=== PATIENT | female | born 2000 | race Caucasian/White ===

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

== ENCOUNTER 2021-01-16 10:49 | Emergency (ER) | payer BC, MEDICAID, OTHER, SELFPAY ==
[~2021-01-16] VITALS: Ht 154.9 cm; Wt 61.2 kg
[~2021-01-16 10:49] MED LIST changes: +ARIP10TA32 PO; -ARIP1TAB PO; -DOXY100C; +DOXY100C3; +OLAN1TAB16 PO; -OLAN5TAB PO
[2021-01-16 10:50] VITALS: BP 133/64
[2021-01-16] MEDS ORDERED: ZYPR5TAB31 PO (12:04)
== END 2021-01-16 12:15 | disposition home or self-care (01) ==
LOC: M ED 10:49
DX: Z76.0 Encounter for issue of repeat prescription (principal); Z79.899 Other long term (current) drug therapy; Z88.0 Allergy status to penicillin

== ENCOUNTER 2021-01-21 02:44 | Inpatient (IN) | payer BC, MEDICAID, OTHER, SELFPAY ==
[~2021-01-21] VITALS: Ht 154.9 cm; Wt 56.8 kg
[~2021-01-21 02:44] MED LIST changes: +ZYPR5TAB31 PO
[2021-01-21 03:14] LABS: HEMATOCRIT 42.8 % (36.0-47.0); MEAN CORPUSCULAR HEMOGLOBIN 29.5 pg (27.0-33.0); MEAN CORPUSCULAR HGB CONC 32.7 g/dl (32.0-36.5); MEAN CORPUSCULAR VOLUME 90.1 fl (80.0-96.0); PLATELET COUNT, AUTOMATED 288 10^3/uL (150-450); RED BLOOD COUNT 4.75 10^6/uL (4.00-5.40); WHITE BLOOD COUNT 6.6 10^3/uL (4.0-10.0)
[2021-01-21 04:28] LABS: HCG, SERUM QUALITATIVE NEGATIVE (NEGATIVE)
[2021-01-21 04:42] LABS: ALBUMIN 4.5 GM/DL (3.2-5.2); ALT/SGPT 75 U/L (12-78); BILIRUBIN,DIRECT 0.2 MG/DL (0.0-0.2); BILIRUBIN,TOTAL 0.6 MG/DL (0.2-1.0); BLOOD UREA NITROGEN 14 MG/DL (7-18); CALCIUM LEVEL 9.5 MG/DL (8.5-10.1); CARBON DIOXIDE LEVEL 30 MEQ/L (21-32); CHLORIDE LEVEL 106 MEQ/L (98-107); CREATININE FOR GFR 0.68 MG/DL (0.55-1.30); ETHYL ALCOHOL (ETHANOL) 0.003 % (0.000-0.010); GLUCOSE, FASTING 89 MG/DL (70-100); SALICYLATE LEVEL < 1.7 MG/DL (5.0-30.0); SODIUM LEVEL 140 MEQ/L (136-145); TOTAL PROTEIN 8.7 GM/DL (6.4-8.2)
[2021-01-21 04:43] LABS: ACETAMINOPHEN LEVEL < 2.0 UG/ML (10.0-30.0)
[2021-01-21 05:53] LABS: AMPHETAMINES LEVEL URINE POSITIVE (NEGATIVE); BARBITURATES URINE NEGATIVE (NEGATIVE); BENZODIAZEPINES URINE NEGATIVE (NEGATIVE); CANNABINOIDS URINE POSITIVE (NEGATIVE); COCAINE METABOLITE URINE NEGATIVE (NEGATIVE); METHADONE URINE NEGATIVE (NEGATIVE); OPIATES URINE NEGATIVE (NEGATIVE); PHENCYCLIDINE URINE NEGATIVE (NEGATIVE)
[2021-01-21] MEDS ORDERED: HOME MED LIST COMPLETE! XX SCH (06:25)
[2021-01-21] MEDS ORDERED: OLAN1TAB16 PO (06:25)
[2021-01-21] MEDS ORDERED: LORazepam 2 MG TAB PO STA (07:53)
[2021-01-21] MEDS ORDERED: OLANZapine ORAL DISINTEGRATING TAB 5MG PO ONE (07:55)
[2021-01-21] MEDS: OMEPRAZOLE 20 MG CAP PO SCH (09:00)
[2021-01-21] MEDS: MULTIVITAMINS/MINERALS THERAP 1 TAB PO SCH (09:00)
[2021-01-21 11:43] LABS: RSV AMPLIFICATION NEGATIVE (NEGATIVE)
--- NOTE | 2021-01-21 15:14 | MHIPNPDOC ---
[facility] Progress Note Progress Note Spoke with PFS worker Maeve Landis, states patient was brought in on the pickup order due to decompensation at [facility], was scaring other residents and threatening them stating reportedly "I will kill these motherfuckers". She also presented as being disorganized, psychotic, religiously preoccupied. Has a history of taking Zyprexa and is unclear if she is compliant. Told PSF worker patient meets admission criteria, and to admit. Vital Signs Vital Signs Date Time Temp Pulse Resp B/P (MAP) Pulse Ox O2 Delivery O2 Flow Rate FiO2 01/21/21 11:04 96.7 67 16 93/50 (64) 100 Room Air Laboratory Data 24H Labs Laboratory Tests 2 01/21/21 03:04: Nucleated Red Blood Cells % (auto) 0.0, Anion Gap 4L, Calcium Level 9.5, Total Bilirubin 0.6, Direct Bilirubin 0.2, Aspartate Amino Transf (AST/SGOT) 54H, Alanine Aminotransferase (ALT/SGPT) 75, Alkaline Phosphatase 95, Total Protein 8.7H, Albumin 4.5, Albumin/Globulin Ratio 1.1L, Thyroid Stimulating Hormone (TSH) 3.550, Human Chorionic Gonadotropin, Qual NEGATIVE, Salicylates Level < 1.7L, Acetaminophen Level < 2.0L, Ethyl Alcohol Level 0.003 01/21/21 05:09: Urine Opiates Screen NEGATIVE, Urine Methadone Screen NEGATIVE, Urine Barbiturates Screen NEGATIVE, Urine Phencyclidine Screen NEGATIVE, Urine Amphetamines Screen POSITIVEH, Urine Benzodiazepines Screen NEGATIVE, Urine Cocaine Metabolite Screen NEGATIVE, Urine Cannabinoids Screen POSITIVEH 01/21/21 10:53: Coronavirus (COVID-19)(PCR) NEGATIVE, Influenza Type A (RT-PCR) NEGATIVE, Influenza Type B (RT-PCR) NEGATIVE, Respiratory Syncytial Virus (PCR) NEGATIVE CBC/BMP Laboratory Tests 01/21/21 03:04 Current Medications Current Medications Medications (Trade) Dose Ordered Sig/Meka Route PRN Reason Start Time Stop Time Status Last Admin Dose Admin Home Med (Home Med List Complete!) ASDIRECTED XX 01/21/21 06:25 01/21/21 06:26 DC Lorazepam (Ativan) 2 mg STAT STAT PO 01/21/21 07:53 01/21/21 07:54 DC Allergies Coded Allergies: Penicillins (Verified Allergy, Intermediate, 12/16/19) NENO JACKSON MD Jan 21, 2021 15:14
[2021-01-21] MEDS ORDERED: ACETAMINOPHEN TAB 650MG DOSE (2X325MG) PO PRN (15:15)
[2021-01-21] MEDS ORDERED: LORazepam 2 MG TAB PO PRN (15:15)
[2021-01-21] MEDS ORDERED: IBUPROFEN 400MG TAB PO PRN (15:15)
[2021-01-21] MEDS ORDERED: OLANZapine 5 MG TAB PO PRN (15:15)
[2021-01-21] MEDS ORDERED: MOM 30ML SUSPENSION UDC PO PRN (15:15)
[2021-01-21 16:31] VITALS: BP 120/76
[2021-01-21] MEDS: SENOKOT S TAB PO SCH (21:00)
[2021-01-21 22:11] VITALS: BP 115/67
[2021-01-21] MEDS: NICOTINE 7 MG/24 HR TRANSDERMAL TD SCH (22:11)
[2021-01-21] MEDS: THIAMINE 100 MG TAB PO SCH (22:11)
[2021-01-21] MEDS ORDERED: OLANZapine ORAL DISINTEGRATING TAB 5MG PO PRN (22:55)
[2021-01-22 06:55] VITALS: BP_SYST 144; BP_DIAS 75; BP_DIAS 85
[2021-01-22] MEDS: OMEPRAZOLE 20 MG CAP PO SCH (09:00)
[2021-01-22] MEDS: NICOTINE 7 MG/24 HR TRANSDERMAL TD SCH (09:35)
[2021-01-22] MEDS: FOLIC ACID 1 MG TAB PO SCH (09:36)
[2021-01-22] MEDS: THIAMINE 100 MG TAB PO SCH ×2 (09:36→20:24)
[2021-01-22] MEDS: SENOKOT S TAB PO SCH ×2 (09:36→20:24)
[2021-01-22] MEDS: MULTIVITAMINS/MINERALS THERAP 1 TAB PO SCH (09:36)
--- NOTE | 2021-01-22 13:29 | HPEPDOC ---
[facility] Medical History & Physical Date of Admission Jan 22, 2021 Date of Service: Jan 22, 2021 History and Physical CHIEF COMPLAINT: homicidal ideation HISTORY OF PRESENT ILLNESS: 20-year-old female with a past medical history of psychosis and admission to [facility], was brought in on hop picker due to decompensation at her woman's assisted where she was scaring other residents and threatening them with homicidal ideations. Patient denies any chest pain shortness of breath rotations nausea vomiting diarrhea. She denies any homicidal suicidal ideation at this time. She does appear to be pressured and thought and speech. She states that she fell on her left knee approximately 2 to 3 days ago, landed on flexed knee right overlying the scapula. She is able to ambulate with a slight limp. She often feels a slight click on bending the knee. She does not observe any significant weakness on flexion or extension of the knee. She states that the rotation of the knee is limited by pain. PAST MEDICAL HISTORY: Tonsillectomy Psychosis SOCIAL HISTORY: Smoker Denies alcohol use No history of drug use. FAMILY HISTORY: Reviewed with the patient provided no pertinent history ALLERGIES: Please see below. REVIEW OF SYSTEMS: A 10 point ROS was conducted relevant findings are noted in HPI. HOME MEDICATIONS: Please see below. PHYSICAL EXAMINATION: VITAL SIGNS: please see below General: NAD, comfortable HEENT: PERRLA, EOMI, sclerae clear Neck: supple, normal ROM, no JVD Respiratory: lungs CTAB, no wheeze, no rales, no crackles CVS: RRR, normal S1, S2, no murmurs Abdo: soft, no masses, no hepatosplenomegaly, BS+, no rebound tenderness Extremities: no edema, pulses 2+ MSK: Left knee shows ecchymosis overlying the patella. Patient declined palpation of the knee joint, or range of motion with resistance. Only visual in spection was performed. Neuro: no focal neuro deficits, moving all 4 extremities, CN2-12 intact. Strength 5/5 in all 4 extremities. No nystagmus. Psych: calm, cooperative, AAO x 3 LABORATORY DATA: See below. MICROBIOLOGY: Please see below. ASSESSMENT: 20-year-old female with a past medical history of psychosis, unspecified prior admissions to [facility] you presented here with homicidal ideation against other members of the female assisted. Patient complaining of left knee pain after she fell on a flexed knee landing on her patella. Patient has significant bruising overlying the patella but has refused physical examination including palpation and range of motion against resistance. Only visual inspection was able to be performed. . PLAN: Psychosis, homicidal ideation: Per psychiatry Left knee pain: We will obtain AP and lateral views of the knee as patient is unable to be transported from the floor for a complete and standing view. Plan likely for physical therapy and orthopedic surgery evaluation as an outpatient depending on x-ray findings. Dispo: Per psychiatry Vital Signs Vital Signs Date Time Temp Pulse Resp B/P (MAP) Pulse Ox O2 Delivery O2 Flow Rate FiO2 01/22/21 06:55 79 144/75 01/22/21 06:55 98.1 18 98 Room Air Home Medications Scheduled Olanzapine (Olanzapine) 5 Mg Tablet, 5 MG PO DAILY Allergies Coded Allergies: Penicillins (Verified Allergy, Intermediate, 12/16/19) MARTIR CLAUDIO MD Jan 22, 2021 13:29
[2021-01-22 14:00] VITALS: BP 115/60
--- NOTE | 2021-01-22 14:18 | REP ---
INDICATION: L knee pain s/p fall, bruising over patella COMPARISON: None. TECHNIQUE: Two views left knee. FINDINGS: There is no evidence of acute fracture, dislocation, or intrinsic bone disease.The joint spaces are unremarkable. IMPRESSION: No fracture or dislocation. <Electronically signed by Jeovanny Bey > 01/22/21 [id number]
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
[2021-01-22 16:06] VITALS: BP 115/60
[2021-01-22] MEDS: OLANZapine 5 MG TAB PO SCH (20:24)
[2021-01-23 06:29] VITALS: BP 126/63
[2021-01-23 06:32] VITALS: BP 126/63
[2021-01-23] MEDS: MULTIVITAMINS/MINERALS THERAP 1 TAB PO SCH (09:43)
[2021-01-23] MEDS: THIAMINE 100 MG TAB PO SCH ×2 (09:43→20:39)
[2021-01-23] MEDS: FOLIC ACID 1 MG TAB PO SCH (09:44)
[2021-01-23] MEDS: OMEPRAZOLE 20 MG CAP PO SCH (09:44)
[2021-01-23] MEDS: NICOTINE 21MG/24HR 1 EA TRANSDERMAL TD SCH (09:44)
[2021-01-23] MEDS: SENOKOT S TAB PO SCH ×2 (09:44→20:39)
[2021-01-23 14:00] VITALS: BP 128/68
--- NOTE | 2021-01-23 16:06 | MHIPNPDOC ---
[facility] Progress Note Progress Note DATE OF SERVICE: 01/23/21 HISTORY: 20-year-old female with a history of psychosis and substance use (methamphetamine and cannabis known) was admitted after being very disorganized and threatening at her residence. Patient was restarted on Zyprexa, today is hospital day 2. Was seen today sleeping in bed, she woke readily to her name being called. Denied any complaints, denied any homicidal or suicidal ideation, denied any auditory visual hallucinations at this time. Reports that her medication is working well, feels that she does need the medication, and is a greeable to continue taking it. Denied of any to this time requested to be able to leave, but accept explanation that she would need a few more days for stabilization. VITAL SIGNS: See below. NEW TEST RESULTS: No new results. CURRENT MEDICATIONS: See below. MENTAL STATUS EXAMINATION: Patient is a 20-year old female, who is lying in bed dressed in hospital clothes. Speech: Is clear, with regular rate rhythm and volume, spontaneous. Language skills are intact. Thought processes including: Appear logical based on brief interaction, however patient said very little so difficult to make accurate assessment. Thought content: Appeared goal oriented, focused on wanting to sleep. Abstract reasoning, and computation: Patient did not want to answer questions testing abstract reasoning. Description of associations: Appear logical. Description of abnormal or psychotic thoughts: Denied suicidal ideation,, homicidal ideation, auditory or visual hallucinations, or delusions. Did not appear internally preoccupied when being spoken with. Judgment: Fair. Insight: Poor. Orientation: X3. Recent and remote memory: Appeared intact. Attention span and concentration: Appeared intact. Language: Fluent. Fund of knowledge: Did not assess. Mood: "I am okay". Affect: Flat. DIAGNOSES: 1. Unspecified psychotic disorder, rule out substance induced psychotic disorder. 2. Cannabis use disorder. 3. Amphetamine use disorder. ASSESSMENT: 20-year-old female with a history of psychotic disorder who was reportedly taking 5 mg Zyprexa daily outpatient. Was restarted on same since admission here. Was very disinterested in talking to me today, wanted to sleep. Became even less interested after being informed that she would not be discharged today, however is agreeable to continue to remain on the unit and take medication. She does feel that the medication is helpful for her. Given her uncertain compliance with oral medications when not hospitalized there may be reason to switch her to a different choice of antipsychotic which can be provided in Depo form. MANAGEMENT PLAN: Continue Zyprexa 5 mg daily; we will continue to monitor and evaluate over time. TIME SPENT: 15 minutes. Vital Signs Vital Signs Date Time Temp Pulse Resp B/P (MAP) Pulse Ox O2 Delivery O2 Flow Rate FiO2 01/23/21 14:00 94 128/68 01/23/21 14:00 97.1 16 Room Air 01/22/21 16:06 98 Current Medications Current Medications Medications (Trade) Dose Ordered Sig/Meka Route PRN Reason Start Time Stop Time Status Last Admin Dose Admin Acetaminophen (Tylenol Tab) 650 mg Q6HP PRN PO HEADACHE or MILD DISCOMFORT 01/21/21 15:15 Folic Acid (Folic Acid) 1 mg DAILY PO 01/22/21 09:00 01/23/21 09:44 Home Med (Home Med List Complete!) ASDIRECTED XX 01/21/21 06:25 01/21/21 06:26 DC Ibuprofen (Advil) 400 mg Q6HP PRN PO MODERATE PAIN (PS 5-7) 01/21/21 15:15 01/22/21 09:37 Lorazepam (Ativan) 2 mg ASDIRECTED PRN PO SEE PROTOCOL 01/21/21 15:15 Lorazepam (Ativan) 2 mg STAT STAT PO 01/21/21 07:53 01/21/21 07:54 DC Magnesium Hydroxide (Milk Of Magnesia) 30 ml DAILYPRN PRN PO CONSTIPATION 01/21/21 15:15 Multivitamins (Theragram-M) 1 tab DAILY PO 01/21/21 09:00 01/23/21 09:43 Nicotine (Nicoderm Cq 21mg) 1 patch DAILY TD 01/23/21 09:00 01/23/21 09:44 Nicotine (Nicoderm Cq 7 Mg) 1 patch DAILY TD 01/21/21 09:00 01/22/21 16:23 DC 01/22/21 09:35 Olanzapine (ZyPREXA ZYDIS) 5 mg Q4HP PRN PO ANXIETY/AGITATION 01/21/21 22:55 01/21/21 23:10 Olanzapine (ZyPREXA) 5 mg Q4HP PRN PO AGITATION 01/21/21 15:15 Cancel Olanzapine (ZyPREXA) 5 mg QHS PO 01/22/21 21:00 01/22/21 20:24 Omeprazole (PriLOSEC) 40 mg DAILY PO 01/21/21 09:00 01/23/21 09:44 Ondansetron HCl (Zofran Odt) 4 mg Q6HP PRN PO NAUSEA OR VOMITING 01/21/21 15:15 Senna/Docusate Sodium (Senokot S) 1 tab BID PO 01/21/21 21:00 01/23/21 09:44 Thiamine HCl (Thiamine HCl) 100 mg BID PO 01/21/21 21:00 01/24/21 09:01 01/23/21 09:43 Allergies Coded Allergies: Penicillins (Verified Allergy, Intermediate, 12/16/19) ALEJANDRA CONTRERAS MD Jan 23, 2021 15:59
[2021-01-23 16:38] VITALS: BP 133/66
[2021-01-23] MEDS: OLANZapine 5 MG TAB PO SCH (20:39)
[2021-01-23] MEDS ORDERED: traZODone 50 MG TAB PO PRN (20:45)
[2021-01-24 07:31] VITALS: BP 113/62
[2021-01-24] MEDS: FOLIC ACID 1 MG TAB PO SCH (09:11)
[2021-01-24] MEDS: SENOKOT S TAB PO SCH ×2 (09:11→20:23)
[2021-01-24] MEDS: NICOTINE 21MG/24HR 1 EA TRANSDERMAL TD SCH (09:11)
[2021-01-24] MEDS: OMEPRAZOLE 20 MG CAP PO SCH (09:11)
[2021-01-24] MEDS: MULTIVITAMINS/MINERALS THERAP 1 TAB PO SCH (09:11)
[2021-01-24] MEDS: THIAMINE 100 MG TAB PO SCH (09:11)
--- NOTE | 2021-01-24 13:47 | MHIPNPDOC ---
[facility] Progress Note Progress Note DATE OF SERVICE: 01/24/21 HISTORY: 20-year-old female with a history of psychosis and substance use (methamphetamine and cannabis known) was admitted after being very disorganized and threatening at her residence. Patient was restarted on Zyprexa, today is hospital day 2. Was seen today sleeping in bed, she woke readily to her name being called. Denied any complaints, denied any homicidal or suicidal ideation, denied any auditory visual hallucinations at this time. Reports that her medication is working well, feels that she does need the medication, and is a greeable to continue taking it. Denied of any to this time requested to be able to leave, but accept explanation that she would need a few more days for stabilization. INTERVAL HISTORY: Tegan is seen today laying in bed, reported that she ate a turkey and was for lunch. Denied side effects of medications. Denied SI, HI, AVH. Reports that she is doing well. Again asked about the possibility of discharge. VITAL SIGNS: See below. NEW TEST RESULTS: None. CURRENT MEDICATIONS: See below. MENTAL STATUS EXAMINATION: Patient is a 20-year old female, who is dressed in hospital clothing, laying in bed. Speech: Is clear, with regular rate rhythm and volume. Language skills are intact. Thought processes including: Appears linear. Thought content: Focused on wanting to leave. Abstract reasoning, and computation: Appears intact. Description of associations: Linear. Description of abnormal or psychotic thoughts: Denies SI, HI, AVH; does not appear internally preoccupied. Judgment: Fair. Insight: Poor. Orientation: X3. Recent and remote memory: Intact. Attention span and concentration: Intact. Language: Fluent. Fund of knowledge: Appropriate for age. Mood: "I am good". Affect: Euthymic, stable, congruent to thought content. DIAGNOSES: 1. Unspecified psychotic disorder, rule out substance induced psychotic disorder. 2. Cannabis use disorder. 3. Amphetamine use disorder. ASSESSMENT: 20-year-old female with a history of psychotic disorder who was reportedly taking 5 mg Zyprexa daily outpatient. Was restarted on same since admission here. Was very disinterested in talking to me today, wanted to sleep. Became even less interested after being informed that she would not be discharged today, however is agreeable to continue to remain on the unit and take medication. She does feel that the medication is helpful for her. Given her uncertain compliance with oral medications when not hospitalized there may be reason to switch her to a different choice of antipsychotic which can be provided in Depo form. MANAGEMENT PLAN: Continue Zyprexa 5 mg daily; we will continue to monitor and evaluate over time. TIME SPENT: 10 minutes. Vital Signs Vital Signs Date Time Temp Pulse Resp B/P (MAP) Pulse Ox O2 Delivery O2 Flow Rate FiO2 01/24/21 07:31 97.8 87 18 113/62 (79) Room Air 01/23/21 16:38 96 Current Medications Current Medications Medications (Trade) Dose Ordered Sig/Meka Route PRN Reason Start Time Stop Time Status Last Admin Dose Admin Acetaminophen (Tylenol Tab) 650 mg Q6HP PRN PO HEADACHE or MILD DISCOMFORT 01/21/21 15:15 Folic Acid (Folic Acid) 1 mg DAILY PO 01/22/21 09:00 01/24/21 09:11 Home Med (Home Med List Complete!) ASDIRECTED XX 01/21/21 06:25 01/21/21 06:26 DC Ibuprofen (Advil) 400 mg Q6HP PRN PO MODERATE PAIN (PS 5-7) 01/21/21 15:15 01/22/21 09:37 Lorazepam (Ativan) 2 mg ASDIRECTED PRN PO SEE PROTOCOL 01/21/21 15:15 Lorazepam (Ativan) 2 mg STAT STAT PO 01/21/21 07:53 01/21/21 07:54 DC Magnesium Hydroxide (Milk Of Magnesia) 30 ml DAILYPRN PRN PO CONSTIPATION 01/21/21 15:15 Multivitamins (Theragram-M) 1 tab DAILY PO 01/21/21 09:00 01/24/21 09:11 Nicotine (Nicoderm Cq 21mg) 1 patch DAILY TD 01/23/21 09:00 01/24/21 09:11 Nicotine (Nicoderm Cq 7 Mg) 1 patch DAILY TD 01/21/21 09:00 01/22/21 16:23 DC 01/22/21 09:35 Olanzapine (ZyPREXA ZYDIS) 5 mg Q4HP PRN PO ANXIETY/AGITATION 01/21/21 22:55 01/21/21 23:10 Olanzapine (ZyPREXA) 5 mg Q4HP PRN PO AGITATION 01/21/21 15:15 Cancel Olanzapine (ZyPREXA) 5 mg QHS PO 01/22/21 21:00 01/23/21 20:39 Omeprazole (PriLOSEC) 40 mg DAILY PO 01/21/21 09:00 01/24/21 09:11 Ondansetron HCl (Zofran Odt) 4 mg Q6HP PRN PO NAUSEA OR VOMITING 01/21/21 15:15 Senna/Docusate Sodium (Senokot S) 1 tab BID PO 01/21/21 21:00 01/24/21 09:11 Thiamine HCl (Thiamine HCl) 100 mg BID PO 01/21/21 21:00 01/24/21 09:01 DC 01/24/21 09:11 Trazodone HCl (Desyrel) 50 mg QHSP PRN PO INSOMNIA 01/23/21 20:45 Allergies Coded Allergies: Penicillins (Verified Allergy, Intermediate, 12/16/19) ALEJANDRA CONTRERAS MD Jan 24, 2021 10:15
[2021-01-24 14:00] VITALS: BP 120/60
[2021-01-24 16:39] VITALS: BP 120/60
[2021-01-24] MEDS: ONDANSETRON 4 MG ORAL DISINTEGRATING TAB PO PRN (17:34)
[2021-01-24] MEDS: OLANZapine 5 MG TAB PO SCH (20:23)
[2021-01-25 05:57] VITALS: BP 112/71
[2021-01-25] MEDS: NICOTINE 21MG/24HR 1 EA TRANSDERMAL TD SCH (09:00)
[2021-01-25] MEDS: MULTIVITAMINS/MINERALS THERAP 1 TAB PO SCH (10:50)
[2021-01-25] MEDS: OMEPRAZOLE 20 MG CAP PO SCH (10:50)
[2021-01-25] MEDS: SENOKOT S TAB PO SCH ×2 (10:50→20:13)
[2021-01-25] MEDS: FOLIC ACID 1 MG TAB PO SCH (10:50)
--- NOTE | 2021-01-25 17:45 | MHIPNPDOC ---
[facility] Progress Note Progress Note DATE OF SERVICE: 01/25/21 HISTORY: Patient is a 20 -year-old , female, with a history of amphetamine and cannabis use (both positive on toxicology), substance induced psychotic disorder, who was brought in on the pickup order due to decompensation at a [facility] through [facility], was scarring other residents and threatening them stating reportedly "I will kill these motherfuckers". She also presented as being disorganized, psychotic, religiously preoccupied in the ED. Has a history of taking Zyprexa 5 mg qhs and is unclear if she is compliant, without outpatient treatment. Was admitted on a 9.39. Interval: Charts reviewed. Patient was seen briefly in the hallway, states she is doing well, appears euthymic, calm, socializing in the milieu and Engaged. Discussed with social work to help establish safe discharge planning possibly tomorrow. VITAL SIGNS: See below. NEW TEST RESULTS: none CURRENT MEDICATIONS: See below. MENTAL STATUS EXAMINATION: Patient is a 20-year old female, who is in no acute distress, good hygiene, short red hair, good eye contact, appears stated age Speech: Is normal rate rhythm and prosody Language skills are intact Thought processes including: Linear, logical. Thought content: states ready to leave abstract reasoning, and computation: Intact. Description of associations: Intact Description of abnormal or psychotic thoughts: None Judgment: Improved Insight: Fair Orientation: Oriented Recent and remote memory: Intact Attention span and concentration: Fair Language: Setswana Fund of knowledge: Did not fully assess Mood: Good affect: Euthymic, mood congruent, appropriate DIAGNOSES: 1. Substance-induced psychotic disorder 2. Methamphetamine use disorder 3. Cannabis use disorder ASSESSMENT: Patient was seen today briefly on passing in [facility], majority of time was spent coordinating with social work, developing safety plan, safe discharge, to [facility] tomorrow if continues to remain stable on medication regimen. MANAGEMENT PLAN: Plan for possible discharge tomorrow, no longer showing signs of acute intoxication, responding well to medications which he tolerated, continue with safe discharge planning and safety plan. TIME SPENT: 35 minutes. Vital Signs Vital Signs Date Time Temp Pulse Resp B/P (MAP) Pulse Ox O2 Delivery O2 Flow Rate FiO2 01/25/21 05:57 98.0 77 16 112/71 (85) 01/24/21 16:39 100 Room Air Current Medications Current Medications Medications (Trade) Dose Ordered Sig/Meka Route PRN Reason Start Time Stop Time Status Last Admin Dose Admin Acetaminophen (Tylenol Tab) 650 mg Q6HP PRN PO HEADACHE or MILD DISCOMFORT 01/21/21 15:15 Folic Acid (Folic Acid) 1 mg DAILY PO 01/22/21 09:00 01/25/21 10:50 Home Med (Home Med List Complete!) ASDIRECTED XX 01/21/21 06:25 01/21/21 06:26 DC Ibuprofen (Advil) 400 mg Q6HP PRN PO MODERATE PAIN (PS 5-7) 01/21/21 15:15 01/22/21 09:37 Lorazepam (Ativan) 2 mg ASDIRECTED PRN PO SEE PROTOCOL 01/21/21 15:15 Lorazepam (Ativan) 2 mg STAT STAT PO 01/21/21 07:53 01/21/21 07:54 DC Magnesium Hydroxide (Milk Of Magnesia) 30 ml DAILYPRN PRN PO CONSTIPATION 01/21/21 15:15 01/24/21 17:58 Multivitamins (Theragram-M) 1 tab DAILY PO 01/21/21 09:00 01/25/21 10:50 Nicotine (Nicoderm Cq 21mg) 1 patch DAILY TD 01/23/21 09:00 01/24/21 09:11 Nicotine (Nicoderm Cq 7 Mg) 1 patch DAILY TD 01/21/21 09:00 01/22/21 16:23 DC 01/22/21 09:35 Olanzapine (ZyPREXA ZYDIS) 5 mg Q4HP PRN PO ANXIETY/AGITATION 01/21/21 22:55 01/21/21 23:10 Olanzapine (ZyPREXA) 5 mg Q4HP PRN PO AGITATION 01/21/21 15:15 Cancel Olanzapine (ZyPREXA) 5 mg QHS PO 01/22/21 21:00 01/24/21 20:23 Omeprazole (PriLOSEC) 40 mg DAILY PO 01/21/21 09:00 01/25/21 10:50 Ondansetron HCl (Zofran Odt) 4 mg Q6HP PRN PO NAUSEA OR VOMITING 01/21/21 15:15 01/24/21 17:34 Senna/Docusate Sodium (Senokot S) 1 tab BID PO 01/21/21 21:00 01/25/21 10:50 Thiamine HCl (Thiamine HCl) 100 mg BID PO 01/21/21 21:00 01/24/21 09:01 DC 01/24/21 09:11 Trazodone HCl (Desyrel) 50 mg QHSP PRN PO INSOMNIA 01/23/21 20:45 01/24/21 20:23 Allergies Coded Allergies: Penicillins (Verified Allergy, Intermediate, 12/16/19) NENO JACKSON MD Jan 25, 2021 17:45
[2021-01-25 19:25] VITALS: BP_SYST 122; BP_SYST 123; BP_DIAS 61; BP_DIAS 73
[2021-01-25] MEDS: OLANZapine 5 MG TAB PO SCH (20:13)
[2021-01-26 06:40] VITALS: BP 146/67
[2021-01-26 07:22] LABS: CHOLESTEROL RISK RATIO 3.115 (<5)
[2021-01-26] MEDS: NICOTINE 21MG/24HR 1 EA TRANSDERMAL TD SCH (09:00)
[2021-01-26] MEDS: MULTIVITAMINS/MINERALS THERAP 1 TAB PO SCH (09:06)
[2021-01-26] MEDS: SENOKOT S TAB PO SCH (09:06)
[2021-01-26] MEDS: OMEPRAZOLE 20 MG CAP PO SCH (09:06)
[2021-01-26] MEDS: FOLIC ACID 1 MG TAB PO SCH (09:06)
[2021-01-26] MEDS: ONDANSETRON 4 MG ORAL DISINTEGRATING TAB PO PRN (09:35)
[2021-01-26] MEDS ORDERED: NICO21PAT TD (11:47)
[2021-01-26] MEDS ORDERED: OLAN1TAB16 PO (11:47)
[2021-01-26] MEDS ORDERED: TRAZ-252 PO (11:47)
--- NOTE | 2021-01-26 19:32 | MHDSPDOC ---
[facility] Discharge Summary Discharge Summary DATE OF ADMISSION: Jan 21, 2021 at 15:14 DATE OF DISCHARGE: Jan 26, 2021 at 12:20 DISCHARGE DIAGNOSES: 1. Substance induced psychotic disorder 2. Methamphetamine use disorder, moderate 3. Cannabis use disorder, moderate REASON FOR ADMISSION: Per PSA note: "Pt was brought in by [employer] on a 9.[address] Schneider after [employer] Officer K[place] reported [facility] staff member Tonya called 911 due to pt acting bizarre/psychotic and threatening others. Police reported pt was religiously and internally preoccupied, and threatened to "kill all of these mother fers" that were in the fci. Pt spoke with TW in two different types of voices during MHE. One voice appeared to be pt's authentic voice and pt's behavior was polite, pleasant, and cooperative, while pt's second voice displayed an accent, was less cooperative and pleasant, and displayed the opposite behavior. Pt was guarded and minimally responded. Pt was reluctant to give any information to TW and refused to answer several questions responding with "check my chart", and "I already told someone else". Pt states she doesn't need to be here and doesn't understand why police brought her here. Pt reports she is currently staying [facility] the [facility] through [facility] and this evening she was watching tv and reading the bible. Pt reports she "giggled at the commercial" and another resident at the fci asked pt to stop staring at her, initiating a verbal altercation between pt and the resident. Pt reports the other resident left the fci and pt went to her room, which is where pt was when police arrived and informed pt she needed to come to the ED because there were suspicions pt would hurt the other female resident she had been in a verbal altercation with. Pt reports she is staying at the [facility] fci because she is homeless. Pt reports she was living in [place] with a friend, but wound up homeless there as well and returned back to [place] after 2 weeks. Pt would not disclose her living arrangement here prior to leaving for [place]. Pt reports she has a grandmother who lives in [place] and a son who lives in [facility], but denies having any support or close family/friends. Despite poor support and being homeless, pt reports she has no stressors or issues with mood, appetite, sleep, etc. Pt reports she is diagnosed with bipolar and states she doesn't currently have any OP set up but that she's "looking to schedule it". TW questioned where pt was setting up OP services, but pt stated she is unsure "wherever has an opening". Pt would not disclose if she had a hx of inpatient admissions, but per pt's EHR, she had an admission to [facility] September 2020 for bipolar and MDD with psychotic features. Pt has an extensive hx of ED visits here for substance abuse and substance induced psychosis. Pt reports she smoked meth a few days ago and smokes mj daily, but would not go into further detail about her current or hx of substance abuse and instructed tw to "check my test or something I already told someone else." Pt reports she is prescribed Xyprexa and denies being non compliant with her medications. Pt CFS and states she wants to go back to the fci to go to sleep." CONSULTANTS INVOLVED: See medical H and P by hospitalist TREATMENT AND PROGRESS ON THE UNIT: TREATMENT AND PROGRESS ON THE UNIT : Patient was admitted to the [facility] on legal status, afforded the following treatment modalities: 1. individual therapy 2.group therapy 3.medication management 4. milieu therapy 5. Safe environment 6. Substance abuse motivational interviewing HOSPITAL COURSE: Patient was admitted to the [facility] on legal status. CIWA was started. Basic labs were taken in the ED and patient was medically cleared. To xicology was positive for amphetamines and cannabis. Per chart review was having hallucinations, was disorganized and delusional, with agitation in the ED and was mildy disorganized on the first day of admission. Was stabilized with continuing home medication of olanzapine 5 mg qhs, which was well tolerated without side effects. Patient was noted in subsequent days to have pleasant affect, even mood, no agitation, was calm and less disorganized, sleep was improved. Was counseled regarding substance abuse with motivational interviewing. Did endorse using methamphetamine and cannabis in the days prior to the altercation with others in the fci. Has been attending groups and been engaged in treatment planning, coordinating care with social work. Fasting labs were ordered and reviewed. DISCHARGE ASSESSMENT: Patient has no hallucinations, delusions, homicidal or suicidal ideations, intent or plan. Is non-bizarre, dressed appropriately, has good eye contact, not observed to have acute manic symptoms, paranoia, obsessions, bizarre behavior or impulsivity. Has normal mentation. Encouraged to return to hospital if symptoms worsen, and encouraged to call unit if he needs to speak with provider regarding questions on medications or care. MENTAL STATUS EXAMINATION ON DISCHARGE: Patient is a 20-year old female, who is in no acute distress, good hygiene, short red hair, good eye contact, appears stated age, engaged in interview. Speech: Is normal rate rhythm volume, spontaneous Language skills are intact Thought processes including: Linear, logical. Thought content: states ready to leave , denies suicidal or homicidal ideation, intent or plan abstract reasoning, and computation: Intact. Description of associations: Intact Description of abnormal or psychotic thoughts: None Judgment: Improved Insight: Fair Orientation: Oriented x4 Recent and remote memory: Intact Attention span and concentration: Fair Language: Iranian Fund of knowledge: Did not fully assess Mood: "pretty well" affect: Euthymic, mood congruent, appropriate MEDICATIONS ON DISCHARGE: see medication reconciliation PLAN/FOLLOWUP ARRANGEMENTS: Follow Up Care Education Label * Mental Health Appt 1 * Chemical Dependency [facility] * Established With This Provider Yes * Therapist KOTA * Date Jan 28, 2021 * Time 09:00 * Address of Clinic or Practice [address] [facility] * Follow Up Care Education Label * Medical * Medical Follow Up [facility] * Established With This Provider Yes * Address of Clinic or Practice [address] [place] [address] * * Additional information WILL CONTACT PATIENT SOON WE HAVE APPOINTMENT. CSSRS: Wish to be : no Non-specific active suicidal thoughts: no lifetime attempts/interrupted/aborted/preparatory acts: denies, hx of overdose on medications on chart review Taking into consideration safety status, state, modifiable and non-modifiable risk factors patient at low risk for suicide on discharge. The amount of time spent in the coordination of care for this patient was approximately 32 minutes. ETOH/Disorder Med Rx ETOH/DRUG DISORDER RX: Offrd @ d/c & pt refused Vital Signs/I&Os Vital Signs Date Time Temp Pulse Resp B/P (MAP) Pulse Ox O2 Delivery O2 Flow Rate FiO2 01/26/21 06:40 98.9 77 18 146/67 (93) 96 Room Air Laboratory Data Labs 24H Laboratory Tests 2 01/26/21 06:29: Triglycerides Level 294H, Total Cholesterol 162, LDL Cholesterol 51, Non-HDL Cholesterol (LDL + VLDL) 110, Total HDL Cholesterol 52, Cholesterol/HDL Ratio 3.115 Medications Scheduled Nicotine (Nicotine Patch) 21 Mg Patch.td24, 1 PATCH TD DAILY for tobacco use, #7 Olanzapine (Olanzapine) 5 Mg Tablet, 5 MG PO DAILY for psychosis, #7 Scheduled PRN Trazodone HCl (Trazodone HCl) 50 Mg Tablet, 50 MG PO QHSP PRN for INSOMNIA, #7 Allergies Coded Allergies: Penicillins (Verified Allergy, Intermediate, 12/16/19) NENO JACKSON MD Jan 26, 2021 19:32
== END 2021-01-26 12:20 | disposition home or self-care (01) | DRG 776 ==
LOC: M ED 02:44 → M ED INP 15:14 → M PSY 16:29
PROVIDERS: ADMIT Student in an Organized Health Care Education/Training Program; ATTEND Student in an Organized Health Care Education/Training Program
DX: F15.950 Other stimulant use, unspecified with stimulant-induced psychotic disorder with delusions (principal); F17.200 Nicotine dependence, unspecified, uncomplicated; Z88.0 Allergy status to penicillin; Z79.899 Other long term (current) drug therapy; F12.950 Cannabis use, unspecified with psychotic disorder with delusions

== ENCOUNTER 2021-02-22 18:03 | Emergency (ER) | payer SELFPAY ==
[~2021-02-22] VITALS: Ht 157.5 cm; Wt 54.8 kg
[2021-02-22 18:03] VITALS: BP 112/68
[~2021-02-22 18:03] MED LIST changes: +NICO21PAT TD; +TRAZ-252 PO
[2021-02-23] MEDS ORDERED: OLAN1TAB16 PO (06:15)
== END 2021-02-22 20:50 | disposition left against medical advice (07) ==
LOC: M ED 18:03
DX: Z53.21 Procedure and treatment not carried out due to patient leaving prior to being seen by health care provider (principal)

== ENCOUNTER 2021-02-23 06:07 | Emergency (ER) | payer SELFPAY ==
[~2021-02-23] VITALS: Ht 157.5 cm; Wt 55.6 kg
[2021-02-23 06:07] VITALS: BP 138/78
[2021-02-23] MEDS ORDERED: OLAN1TAB16 PO (06:15)
[2021-02-24] MEDS ORDERED: [UNRECOGNIZED DRUG - REMARK] (09:55)
== END 2021-02-23 07:59 | disposition left against medical advice (07) ==
LOC: M ED 06:07
DX: Z53.21 Procedure and treatment not carried out due to patient leaving prior to being seen by health care provider (principal)

== ENCOUNTER 2021-02-23 23:15 | Inpatient (IN) | payer MEDICAID, SELFPAY ==
[~2021-02-23] VITALS: Ht 162.6 cm; Wt 55.0 kg
[2021-02-24 00:43] LABS: HEMATOCRIT 38.8 % (36.0-47.0); HEMOGLOBIN 13.2 g/dl (12.0-15.5); MEAN CORPUSCULAR HEMOGLOBIN 29.8 pg (27.0-33.0); MEAN CORPUSCULAR VOLUME 87.6 fl (80.0-96.0); PLATELET COUNT, AUTOMATED 319 10^3/uL (150-450); RED BLOOD COUNT 4.43 10^6/uL (4.00-5.40); WHITE BLOOD COUNT 6.7 10^3/uL (4.0-10.0)
[2021-02-24] MEDS ORDERED: LORazepam 2 MG/ML VIAL IM STA (00:48)
[2021-02-24] MEDS ORDERED: OLANZapine INTRAMUSCULAR 10MG VIAL IM ONE (00:50)
[2021-02-24] MEDS ORDERED: LORazepam 2 MG/ML VIAL As Ordered ONE (01:02)
[2021-02-24] MEDS ORDERED: OLANZapine INTRAMUSCULAR 10MG VIAL As Ordered ONE (01:06)
[2021-02-24 03:02] LABS: ACETAMINOPHEN LEVEL < 2.0 UG/ML (10.0-30.0); ALBUMIN 4.2 GM/DL (3.2-5.2); ALT/SGPT 41 U/L (12-78); BILIRUBIN,DIRECT 0.2 MG/DL (0.0-0.2); BILIRUBIN,TOTAL 0.7 MG/DL (0.2-1.0); BLOOD UREA NITROGEN 11 MG/DL (7-18); CARBON DIOXIDE LEVEL 25 MEQ/L (21-32); CHLORIDE LEVEL 106 MEQ/L (98-107); CREATININE FOR GFR 0.78 MG/DL (0.55-1.30); ETHYL ALCOHOL (ETHANOL) < 0.003 % (0.000-0.010); GLUCOSE, FASTING 78 MG/DL (70-100); POTASSIUM SERUM 3.7 MEQ/L (3.5-5.1); SALICYLATE LEVEL < 1.7 MG/DL (5.0-30.0); SODIUM LEVEL 138 MEQ/L (136-145); TOTAL PROTEIN 7.7 GM/DL (6.4-8.2)
[2021-02-24 03:02] LABS: AMPHETAMINES LEVEL URINE POSITIVE (NEGATIVE); BARBITURATES URINE NEGATIVE (NEGATIVE); BENZODIAZEPINES URINE NEGATIVE (NEGATIVE); CANNABINOIDS URINE POSITIVE (NEGATIVE); COCAINE METABOLITE URINE NEGATIVE (NEGATIVE); METHADONE URINE NEGATIVE (NEGATIVE); OPIATES URINE NEGATIVE (NEGATIVE); PHENCYCLIDINE URINE NEGATIVE (NEGATIVE)
--- NOTE | 2021-02-24 08:21 | MHIPNPDOC ---
[facility] Progress Note Progress Note DATE OF SERVICE: 02/24/21 HISTORY: Patient returns after being near a bar in [place] and being aggressive [place] methamphetamine and cannabis stating again to kill everybody per PSA report brought in on a 9.41 by police. Was last admitted to [facility] January 21, 2021. Was previously taking olanzapine 5 mg nightly. Communic ated with PSA patient needs criteria for involuntary admission due to homicidal ideation in context of substance use. Needs to be medically cleared before arriving to the [facility]. VITAL SIGNS: See below. NEW TEST RESULTS: Pending CURRENT MEDICATIONS: See below. MENTAL STATUS EXAMINATION: Patient is a 20-year old female, who is in no acute distress, lying in bed, despondent, poorly cooperative to interview, would rather sleep. Speech: Is unable to assess patient does not engage in interview. Language skills are unable to assess patient does not engage in interview. Thought processes including: unable to assess patient does not engage in interview. Thought content:unable to assess patient does not engage in interview. Abstract reasoning, and computation: unable to assess patient does not engage in interview.Description of associations: unable to assess patient does not engage in interview. Description of abnormal or psychotic thoughts:unable to assess patient does not engage in interview. Judgment: Poor Insight: unable to assess patient does not engage in interview. Orientation: unable to assess patient does not engage in interview. Recent and remote memory: unable to assess patient does not engage in interview. Attention span and concentration:unable to assess patient does not engage in interview. Language: Greenlandic Fund of knowledge: Below average based on previous assessment Mood:unable to assess patient does not engage in interview.. Affect: unable to assess patient does not engage in interview. DIAGNOSES: Substance-induced psychotic disorder Cannabis use disorder, severe Methamphetamine use disorder, severe ASSESSMENT: Patient meets criteria for involuntary admission due to risk for harm to others in context of homicidal ideation. MANAGEMENT PLAN: Admit patient in voluntarily on 9.39 TIME SPENT: 15 minutes. Vital Signs Vital Signs Date Time Temp Pulse Resp B/P (MAP) Pulse Ox O2 Delivery O2 Flow Rate FiO2 02/24/21 04:13 96.9 76 18 111/55 (73) 100 Room Air Laboratory Data 24H Labs Laboratory Tests 2 02/24/21 00:30: Nucleated Red Blood Cells % (auto) 0.0, Anion Gap 7L, Calcium Level 9.0, Total Bilirubin 0.7, Direct Bilirubin 0.2, Aspartate Amino Transf (AST/SGOT) 25, Peng ne Aminotransferase (ALT/SGPT) 41, Alkaline Phosphatase 90, Total Protein 7.7, Albumin 4.2, Albumin/Globulin Ratio 1.2, Thyroid Stimulating Hormone (TSH) 1.580, Salicylates Level < 1.7L, Acetaminophen Level < 2.0L, Ethyl Alcohol Level < 0.003 02/24/21 01:10: Urine Opiates Screen NEGATIVE, Urine Methadone Screen NEGATIVE, Urine Barbiturates Screen NEGATIVE, Urine Phencyclidine Screen NEGATIVE, Urine Amphetamines Screen POSITIVEH, Urine Benzodiazepines Screen NEGATIVE, Urine C ocaine Metabolite Screen NEGATIVE, Urine Cannabinoids Screen POSITIVEH CBC/BMP Laboratory Tests 02/24/21 00:30 Current Medications Current Medications Medications (Trade) Dose Ordered Sig/Meka Route PRN Reason Start Time Stop Time Status Last Admin Dose Admin Lorazepam (Ativan) 2 mg STAT STAT IM 02/24/21 00:48 02/24/21 00:50 DC Allergies Coded Allergies: Penicillins (Verified Allergy, Intermediate, 12/16/19) NENO JACKSON MD Feb 24, 2021 08:21
[2021-02-24] MEDS ORDERED: HOME MED LIST COMPLETE! XX SCH (09:55)
[2021-02-24] MEDS ORDERED: [UNRECOGNIZED DRUG - REMARK] (09:55)
[2021-02-24 10:45] LABS: RSV AMPLIFICATION NEGATIVE (NEGATIVE)
[2021-02-24] MEDS ORDERED: MAALOX 30 ML SUSP *UDC PO PRN (13:35)
[2021-02-24] MEDS ORDERED: traZODone 50 MG TAB PO PRN (13:35)
[2021-02-24] MEDS ORDERED: ACETAMINOPHEN TAB 650MG DOSE (2X325MG) PO PRN (13:35)
[2021-02-24] MEDS ORDERED: MOM 30ML SUSPENSION UDC PO PRN (13:35)
--- NOTE | 2021-02-25 12:31 | HPEPDOC ---
General Date of Admission Feb 24, 2021 at 13:33 Date of Service: Feb 25, 2021 Chief Complaint The patient is a 20-year-old female admitted with a reason for visit of UNSPECIFIEd psychotic disorder. Source: Patient History of Present Illness 20-year-old female admitted to inpatient mental health unit for drug-induced psychotic disorder. Her U tox was positive for methamphetamine and cannabis. She has been examined here today for medical history and physical. Patient does not offer any complaints this morning. Home Medications Scheduled Olanzapine (Olanzapine) 5 Mg Tablet, 5 MG PO DAILY, (Reported) Miscellaneous Medications [[facility] Rec Comment] , (Reported) MED REC OBTAINED FROM EXTERNAL Allergies Coded Allergies: Penicillins (Verified Allergy, Intermediate, 12/16/19) Past Medical History Medical History Substance-induced psychotic disorder Polysubstance use disorder :cannabis , Methamphetamine Family History Significant Family History: No pertinent family hx Social History * Smoker: Denies Alcohol: Denies Drugs: marijuana, other (Methamphetamine) A-FIB/CHADSVASC A-FIB History Current/History of A-Fib/PAF?: No Review of Systems Constitutional: Denies: Chills, Fever, Night Sweats Eyes: Denies: Pain, Vision change ENT: Reports: Head Aches; Denies: Ear Pain, Dysphagia Skin: Denies: Rash, Lesions, Breakdown Pulmonary: Denies: Dyspnea, Cough Cardiovascular: Denies: Chest Pain, Palpitations, Orthopnea, Paroxysmal Noc. Dyspnea, Lt Headedness Gastrointestinal: Denies: Nausea, Vomiting, Abdominal Pain, Diarrhea Genitourinary: Denies: Dysuria, Frequency, Incontinence, Retention Physical Examination General Exam: Positive: Alert, Cooperative, No Acute Distress Eye Exam: Positive: PERRLA, Conjunctiva & lids normal, EOMI; Negative: Sclera icteric ENT Exam: Positive: Atraumatic, Mucous membr. moist/pink, Pharynx Normal Neck Exam: Positive: Supple; Negative: JVD, thyromegaly Chest Exam: Positive: Clear to auscultation, Normal air movement Heart Exam: Positive: Rate Normal, Regular Rhythm, Normal S1, Normal S2; Negative: Murmurs, Rubs Abdomen Exam: Positive: Normal bowel sounds, Soft; Negative: Tenderness, Hepatospenomegaly Extremity Exam: Negative: Clubbing, Cyanosis, Edema Psych Exam: Positive: Memory Intact, Oriented x 3 Vital Signs Vital Signs Date Time Temp Pulse Resp B/P (MAP) Pulse Ox O2 Delivery O2 Flow Rate FiO2 02/24/21 14:35 96.8 72 18 115/58 (77) 100 Room Air Laboratory Data Labs 24H Laboratory Tests 2 02/24/21 13:33: Lab Scanned Report LAB OTHER Assessment/Plan 20-year-old female admitted to inpatient mental health unit for drug-induced psychotic disorder. Her U tox was positive for methamphetamine and cannabis. She has been examined here today for medical history and physical. Psychotic disorder As per psych No active medical issues at this time. Plan / VTE VTE Prophylaxis Ordered?: No (Fully ambulatory) Annemarie Jimenez MD Feb 25, 2021 12:31
--- NOTE | 2021-02-25 14:27 | MHHPEPDOC ---
General Legal Status: 9.39 Chief Complaint "I was at the bar and getting nervous and they called the gas line servicer and I was brought here." History of Present Illness HISTORY OF THE PRESENT ILLNESS: Patient is a 20 -year-old Single, Unemployed/Disabled, Undomiciled , female, who was brought to [facility] for a gitation, aggression and homicidal threats. She states in the interview, " I was getting nervous. The floor was moving and I get nervous and I just sat there. My teeth were hurting and they brought me here. Reports recent use of [place]. PER ED REPORT: Patient was picked up by police outside of a local bar after reports were called to dispatch for agitated and erratic behavior. Police reported that patient was angry, agitated & began screaming that she was going to kill everyone, prompting the 9.41 transport. Patient's presenting hx was reviewed with Dr. Hua while he was rounding in ED BHU, at which time he attempted to meet with her. Following this encounter he advised this sba underwriter that she should be admitted. Psychiatric Review of Systems Depression (2 or more weeks): denies Abigail (4 or more days of): denies Psychosis: delusions, paranoia, disorganization PTSD: denies Anxiety: denies Past Psychiatric History Previous Psychiatric Diagnosis: Substance Induced Psychosis Previous Psychiatric Admissions: Last admission January 2021 Suicide Attempts: None Psychiatric Follow-up: Psychiatric medications: Olanzapine Past Medical History Head Injury: No Seizures: No Hospitalizations: Yes Surgeries: Yes (tonsils) Family Medical/Psychiatric HX Medical Problems none Psychiatric Disorders: No Addiction: No Suicide Attemps/Completions: Yes (father - patient was 3 years old) Addiction History nicotine (a few a day), other (Chula ) Social History Childhood: Born in [place], grew up with grandparents, has one older sister Abuse/Trauma: Denies Current Living Situation: Lives alone. Education: No High School Diploma Employment: Unemployed Social Support: Friends Legal: None Marital: Single, 1 child lives with pt's Aunt Bobo 2 years old in March. Stressors: None, walking around to get her own apartment, police brings me every time they see me Mental Status Examination General Appearance: disheveled, ds/not appear stated age (appears younger than stated age), hospital scubs/clothing Build: average Demeanor: very figety Eye Contact: average Activity: anxious Behavior: cooperative Speech: clear, reg/rate,rhythm,volume Mood: anxious, irritable Affect: anxious Thought Process: logical/linear Thought Content (Delusions): none reported Thought Content (Other): coherent Thought Content (Aggressive): none reported Perception (Hallucinations): none reported Perception (Other): none reported Cognition (Impairment of): none reported Cognition(Intelligence Est.): average Oriented: Awake, Alert, Oriented times three Insight: fair Judgment: Fair Psychosis: Denies Diagnoses Substance Induced Psychotic Disorder A-FIB/CHADSVASC A-FIB History Current/History of A-Fib/PAF?: No Current PO Anticoag Therapy: No Initial Treatment Plan 1. Patient was admitted on a [9.39] status. 2. Complete history was obtained. 3. With patients permission, family will be contacted and database will be expanded. 4. Patients medication regimen will be reviewed and changed accordingly. 5. Patient will be provided with protected environment. 6. Patient will be treated with individual, group, and milieu therapies. 7. Patient will receive supportive psych-education. 8. Discharge planning will commence immediately. 9. Outpatient follow-up treatment will be strongly recommended. 10. The initial treatment plan will focus initially on: * Altered mental status * Substance Use ESTIMATED LENGTH OF STAY: 3-5 DAYS. TIME SPENT COUNSELING AND COORDINATING INITIAL CARE: 60 minutes. Tobacco Cessation Screen Tobacco Cessation Tx Ordered?: Yes Ordered/Pending Vital Signs Vital Signs Date Time Temp Pulse Resp B/P (MAP) Pulse Ox O2 Delivery O2 Flow Rate FiO2 02/24/21 14:35 96.8 72 18 115/58 (77) 100 Room Air Medications Scheduled Olanzapine (Olanzapine) 5 Mg Tablet, 5 MG PO DAILY, (Reported) Miscellaneous Medications [[facility] Rec Comment] , (Reported) MED REC OBTAINED FROM EXTERNAL Allergies Coded Allergies: Penicillins (Verified Allergy, Intermediate, 12/16/19) ANDRES OGDEN NP Feb 25, 2021 14:12
[2021-02-25] MEDS ORDERED: OLANZapine ORAL DISINTEGRATING TAB 5MG PO PRN (17:50)
[2021-02-25 19:01] VITALS: BP 120/64
[2021-02-25] MEDS ORDERED: OLANZapine 5 MG TAB PO SCH (21:00)
--- NOTE | 2021-02-26 14:24 | MHDSPDOC ---
[facility] Discharge Summary Discharge Summary DATE OF ADMISSION: Feb 24, 2021 at 13:33 DATE OF DISCHARGE: February 26, 2021 at 0929 DISCHARGE DIAGNOSES: Substance Induced Psychotic Disorder Methamphetamine Use Disorder Rule out Methamphetamine Induced Psychotic Disorder REASON FOR ADMISSION: HISTORY OF THE PRESENT ILLNESS: Patient is a 20 -year-old Single, Unemployed/Disabled, Undomiciled , female, who was brought to [facility] for agitation, aggression and homicidal threats. She states in the interview, " I was getting nervous. The floor was moving and I get nervous and I just sat there. My teeth were hurting and they brought me here. Reports recent use of [place]. PER ED REPORT: Patient was picked up by police outside of a local bar after reports were called to dispatch for agitated and erratic behavior. Police reported that patient was angry, agitated & began screaming that she was going to kill everyone, prompting the 9.41 transport. Patient's presenting hx was reviewed with Dr. Hua while he was rounding in ED BHU, at which time he attempted to meet with her. Following this encounter he advised this technical proposal writer that she should be admitted. VITAL SIGNS: See below. CONSULTANTS INVOLVED: See Medical H + P by Hospitalist TREATMENT AND PROGRESS ON THE UNIT: [facility] a 9.39 legal status was afforded the following treatment modalities: 1) Individual Therapy 2) Group Therapy 3) Medication Management 4) Milieu Therapy 5) Safe Environment HOSPITAL COURSE: [facility] a 9.39 legal status. Pt found medications beneficial and tolerated them well. Mood, anxiety, and intrusive thoughts improved with treatment. Pt attended groups daily during stay. Pts symptoms improved with treatment. On day of discharge pt. denied depression, anxiety, insomnia, SI/HI, hallucinations, delusions. Pt was discharged home with follow-up with [facility] DISCHARGE ASSESSMENT: In today's interview, patient is alert and oriented, pt.s dress is appropriate. Hygiene and grooming is fair, she is disheveled. Smiles on approach and is pleasant and engaged in the interview. Denies depression and anxiety. Denies suicidal and homicidal ideation, planning or intent. Denies and is not observed with noelle, psychotic symptoms of delusions, bizarre thinking, obsessions, paranoia, ruminations illogical thoughts, flight of ideas or having poor insight and judgement. Reinforced with patient need to abstain from alcohol and drugs. At discharge patient has normal mentation, declines further hospitalization on a voluntary status and meets criteria for discharge today. Discussed indications of medications, potential benefits and risks, alternatives (including no treatment) and questions were encouraged and answered. Patient encouraged to return to hospital if symptoms worsen or change and encouraged to call unit if he/she/they needs to speak to provider for questions regarding medications or care. MENTAL STATUS EXAMINATION ON DISCHARGE: Patient is a 20 -year-old Single, Unemployed/Disabled, Undomiciled , female, who was brought to [facility] for agitation, aggression and homicidal threats. admitted to recent use of [place] prior to admission Speech: Is fluid, conversant, normal rate, tone and volume Language skills are intact Thought processes including: linear and goal oriented Thought content: denies depression and anxiety. Denies suicidal/homicidal ideation, planning or intent. Abstract reasoning, and computation: fair Description of associations: denies, none observed Description of abnormal or psychotic thoughts: denies, none observed. Judgment: fair Insight: fair Orientation: alert and oriented to person, place, time and situation Recent and remote memory: intact Attention span and concentration: good Language: expansive Fund of knowledge: average Mood: Euthymic Mood Affect: reactive Suicide Risk Assessment: 1) Does the patient wish to be ? No 2) Since your admission, have you had any actual thought of killing yourself? No 3) Since your admission, have you been thinking about how you might do this? No 4) Since your admission, have you had these thoughts and had some intention of acting on them? No 5) Since your admission, have you started to work out or worked out the details of how to kill yourself? No 5A) Do you intent to carry out this plan? No and NA 6) Have you ever done anything, started anything, or prepared to do anything with any intent to ? No 6A) How long since your admission did you do any of these? NA MEDICATIONS ON DISCHARGE: See Medication Reconciliation PLAN/FOLLOWUP ARRANGEMENTS: [facility] The amount of time spent in the coordination of care for this patient was approximately 25 minutes. ETOH/Disorder Med Rx ETOH/DRUG DISORDER RX: Offrd @ d/c & pt refused Vital Signs/I&Os Vital Signs Date Time Temp Pulse Resp B/P (MAP) Pulse Ox O2 Delivery O2 Flow Rate FiO2 02/25/21 19:01 99.1 87 18 120/64 (82) 02/24/21 14:35 100 Room Air Medications Scheduled Olanzapine (Olanzapine) 5 Mg Tablet, 5 MG PO DAILY, (Reported) Allergies Coded Allergies: Penicillins (Verified Allergy, Intermediate, 12/16/19) ANDRES OGDEN NP Feb 26, 2021 09:32
== END 2021-02-26 11:32 | disposition home or self-care (01) | DRG 776 ==
LOC: M ED 23:15 → M ED INP 02-24 13:33 → M PSY 02-24 15:07
PROVIDERS: ADMIT Student in an Organized Health Care Education/Training Program; ATTEND Psychiatry & Neurology Psychiatry
DX: F15.150 Other stimulant abuse with stimulant-induced psychotic disorder with delusions (principal); F12.150 Cannabis abuse with psychotic disorder with delusions; R45.850 Homicidal ideations; Z88.0 Allergy status to penicillin; Z20.822 Contact with and (suspected) exposure to COVID-19; Z79.899 Other long term (current) drug therapy; Z56.0 Unemployment, unspecified; F17.210 Nicotine dependence, cigarettes, uncomplicated

== ENCOUNTER 2021-03-05 09:36 | Emergency (ER) | payer MEDICAID, SELFPAY ==
[~2021-03-05] VITALS: Ht 157.5 cm; Wt 53.2 kg
[~2021-03-05 09:36] MED LIST changes: +[UNRECOGNIZED DRUG - REMARK]
[2021-03-05 09:40] VITALS: BP 135/71
== END 2021-03-05 12:20 | disposition left against medical advice (07) ==
LOC: M ED 09:36
DX: Z53.21 Procedure and treatment not carried out due to patient leaving prior to being seen by health care provider (principal)

== ENCOUNTER 2021-03-13 11:57 | Emergency (ER) | payer SELFPAY ==
[~2021-03-13] VITALS: Ht 157.5 cm; Wt 52.5 kg
[2021-03-13 11:57] VITALS: BP 152/73
[2021-03-13 14:18] LABS: BASO % 0.6 % (0.0-1.0); EOS % 0.2 % (0.0-3.0); HEMATOCRIT 41.5 % (36.0-47.0); HEMOGLOBIN 13.7 g/dl (12.0-15.5); LYMPH # 1.7 10^3/uL (1.5-5.0); MEAN CORPUSCULAR HEMOGLOBIN 29.4 pg (27.0-33.0); MEAN CORPUSCULAR VOLUME 89.1 fl (80.0-96.0); MONO # 0.3 10^3/uL (0.0-0.8); MONO % 5.6 % (2.0-8.0); NEUTROPHILS % 59.2 % (36.0-66.0); PLATELET COUNT, AUTOMATED 341 10^3/uL (150-450); RED BLOOD COUNT 4.66 10^6/uL (4.00-5.40)
== END 2021-03-13 14:54 | disposition left against medical advice (07) ==
LOC: M ED 11:57
DX: R11.0 Nausea (principal); Z53.9 Procedure and treatment not carried out, unspecified reason; F90.9 Attention-deficit hyperactivity disorder, unspecified type; F31.89 Other bipolar disorder; K21.9 Gastro-esophageal reflux disease without esophagitis; Z87.59 Personal history of other complications of pregnancy, childbirth and the puerperium; Z91.52 Personal history of nonsuicidal self-harm; K76.9 Liver disease, unspecified; F17.290 Nicotine dependence, other tobacco product, uncomplicated; F19.10 Other psychoactive substance abuse, uncomplicated; Z88.0 Allergy status to penicillin

== ENCOUNTER 2021-03-13 15:59 | Emergency (ER) | payer SELFPAY ==
[~2021-03-13] VITALS: Ht 157.5 cm; Wt 52.1 kg
[2021-03-13 15:59] VITALS: BP 123/64
== END 2021-03-13 23:06 | disposition left against medical advice (07) ==
LOC: M ED 15:59
DX: Z53.21 Procedure and treatment not carried out due to patient leaving prior to being seen by health care provider (principal)

== ENCOUNTER 2021-03-14 12:18 | Emergency (ER) | payer SELFPAY ==
[~2021-03-14] VITALS: Ht 157.5 cm; Wt 51.5 kg
== END 2021-03-14 12:40 | disposition left against medical advice (07) ==
LOC: M ED 12:18
DX: Z53.21 Procedure and treatment not carried out due to patient leaving prior to being seen by health care provider (principal)

== ENCOUNTER 2021-03-15 09:23 | Emergency (ER) | payer SELFPAY ==
[~2021-03-15] VITALS: Ht 157.5 cm; Wt 51.8 kg
[2021-03-15 09:33] VITALS: BP 110/59
[2021-03-17] MEDS ORDERED: BACI500O21 TOP (10:11)
[2021-03-17] MEDS ORDERED: FLAG500T PO (16:42)
== END 2021-03-16 | disposition left against medical advice (07) ==
LOC: M ED 09:23
DX: Z53.21 Procedure and treatment not carried out due to patient leaving prior to being seen by health care provider (principal)

== ENCOUNTER 2021-03-17 01:01 | Emergency (ER) | payer SELFPAY ==
[~2021-03-17] VITALS: Ht 157.5 cm; Wt 51.2 kg
[2021-03-17 08:17] VITALS: BP 132/67
--- NOTE | 2021-03-17 09:20 | REP ---
INDICATION: pelvic pain. COMPARISON: CT 08/28/2020. TECHNIQUE: Transabdominal and transvaginal scanning performed. FINDINGS: Uterine dimensions are 7.7 x 3.3 x 4.5 cm. Endometrial echo is 5 mm in AP dimension and centrally placed. There is debris noted within the urinary bladder. The bladder measures 6.1 x 4.8 x 9.7cm. The right ovary has dimensions of 3.7 x 2.6 x 3.4 cm. It's Doppler flow is normal with a resistive index of 0.44. The left ovary dimensions are 2.5 x 1.8 x 2.0 cm. It's Doppler flow was normal with resistive index of 0.42. A dominant follicle of the right ovary measures 1.7 x 1.5 x 1.4 cm. There is no other evidence of adnexal mass. No free fluid is seen in the cul-de-sac. IMPRESSION: Dominant follicle right ovary 1.7 cm. No free fluid or torsion. Debris is noted within the urinary bladder. <Electronically signed by Jeovanny Bey > 03/17/21 0961
[2021-03-17 09:55] LABS: BASO % 0.6 % (0.0-1.0); EOS % 0.4 % (0.0-3.0); HEMATOCRIT 40.3 % (36.0-47.0); HEMOGLOBIN 13.2 g/dl (12.0-15.5); LYMPH % 41.6 % (24.0-44.0); MEAN CORPUSCULAR HEMOGLOBIN 29.1 pg (27.0-33.0); MEAN CORPUSCULAR HGB CONC 32.8 g/dl (32.0-36.5); MEAN CORPUSCULAR VOLUME 88.8 fl (80.0-96.0); MONO # 0.4 10^3/uL (0.0-0.8); MONO % 8.5 % (2.0-8.0); NEUTROPHILS # 2.3 10^3/uL (1.5-8.5); NEUTROPHILS % 48.7 % (36.0-66.0); PLATELET COUNT, AUTOMATED 289 10^3/uL (150-450); RED BLOOD COUNT 4.54 10^6/uL (4.00-5.40); WHITE BLOOD COUNT 4.7 10^3/uL (4.0-10.0)
[2021-03-17] MEDS ORDERED: BACI500O21 TOP (10:11)
[2021-03-17 10:22] LABS: BLOOD UREA NITROGEN 8 MG/DL (7-18); CALCIUM LEVEL 8.8 MG/DL (8.5-10.1); CARBON DIOXIDE LEVEL 25 MEQ/L (21-32); CHLORIDE LEVEL 111 MEQ/L (98-107); CREATININE FOR GFR 0.72 MG/DL (0.55-1.30); GLUCOSE, FASTING 71 MG/DL (70-100); POTASSIUM SERUM 3.9 MEQ/L (3.5-5.1); SODIUM LEVEL 141 MEQ/L (136-145)
[2021-03-17 11:16] LABS: GC DNA AMPLIFICATION NEGATIVE (NEGATIVE)
[2021-03-17] MEDS ORDERED: FLAG500T PO (16:42)
--- NOTE | 2021-03-17 16:44 | ED PDOC ---
Post-Departure Follow-Up reviewed pending ua results. positive for trichamonas. attempted to call patient at listed number. left voicemail to call back to discuss test results. i have sent a prescription for flagyl 500 mg po bid for 7 days to her pharmacy. ABELARDO AQUINO PA-C. Mar 17, 2021 16:44
== END 2021-03-17 10:15 | disposition left against medical advice (07) ==
LOC: M ED 01:01
DX: F42.4 Excoriation (skin-picking) disorder (principal); R10.2 Pelvic and perineal pain; Z53.9 Procedure and treatment not carried out, unspecified reason; F17.200 Nicotine dependence, unspecified, uncomplicated; F19.10 Other psychoactive substance abuse, uncomplicated; Z88.0 Allergy status to penicillin

== ENCOUNTER 2021-03-20 22:35 | Emergency (ER) | payer SELFPAY ==
[~2021-03-20] VITALS: Ht 162.6 cm; Wt 52.3 kg
[~2021-03-20 22:35] MED LIST changes: +FLAG500T PO
--- OUTSIDE RECORDS SUMMARY | 2021-03-20 22:38 | CCD ---
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 sodium injection (Rocephin) 09/01/2020 12:00:00 AM EDT - 09/01/2020 12:00:00 AM EDT [facility] ([facility]) OFFICE VISIT, EST 09/01/2020 12:00:00 AM EDT - 09/01/2 021 12:00:00 AM EDT [facility] ([facility]) NGHN Default 08/21/2020 12:00:00 AM EDT - 08/21/2020 1 2:00:00 AM EDT [facility] ([facility]) Service Not Offered [SVCXOFF] 08/21/2020 12:00:00 AM EDT - 08/21/2020 12:00:00 AM EDT [facility] ([facility]) Est Pt PC Detailed 08/21/2020 12:00:00 AM EDT - 2020 12:00:00 AM EDT [facility] ([facility]) ROUTINE VENIPUNCTURE 08/21/2020 12:00:00 AM EDT - 08/21/2020 12:00:00 AM EDT [facility] ([facility]) URINE TEST 08/21/2020 12:00:00 AM EDT - 08/21/2020 12:00:00 AM EDT [facility] ([facility]) Results ID Date Data Source [id number] 02/24/2021 09:55:00 AM EDT [facility] Name Value Range Interpretation Code Description Data Veronica rce(s) Supporting Document(s) SARS coronavirus 2 RNA [Presence] in Res piratory specimen by ANGIE with probe detection NEGATIVE [facility] This lab was ordered by [facility] a nd reported by [facility]. ID Date Data Source [id number] 01/21/2021 10:53:00 AM EDT [facility] Name Value Range Interpretation Code Description Data Veronica rce(s) Supporting Document(s) SARS coronavirus 2 RNA [Presence] in Res piratory specimen by ANGIE with probe detection NEGATIVE [facility] This lab was ordered by [facility] a nd reported by [facility]. ID Date Data Source [id number] 08/21/2020 04:24:57 PM EDT [facility] ([facility]) Name Value Range Interpretation Code Description Data Veronica rce(s) Supporting Document(s) NegativeLot: [id number]: 03/04/2022 High Sensitivity Urine Test [facility] ([facility]) ID Date Data Source [id number] 08/16/2020 12:35:00 AM EST [facility] 1 OrderSheet [facility] Emergency Department [address] [place] [address] Phone #: [phone]- [phone] 08/16/2020 00:35 Patient: ROSSANA RIVERS I Sex: F : 2000 Age: 20yWEIGHT:49.8 kg (S) HEIGHT:61 inches (S) BMI:20.8ALLERGIES: PenicillinsCHIEF COMPLAINT: skin rashDIAGNOSIS: Cellulitis of skinLAB ORDERSOrder Description Priority Entered Acknowledged InitialedUrine Drug Screen STAT 00:52 08/16/2020 Ack'd: 00:57 Nieves Scales Physician; R.N.Urinalysis (Clean STAT 00:52 08/16/2020 Ack'd: 00:57Catch) Nieves Scales Physician; R.N.Culture, Wound STAT 00:52 08/16/2020 00:54 Nicole,(jimmy) Randall Pickett R.N. Physician;Culture MRSA STAT 00:52 08/16/2020 00:54 Randall Rivera R.N. Physician; NOTES: NaresHCG Urine Qual STAT 00:52 08/16/2020 Ack'd: 00:57 Nieves Scales Physician; R.N.DIAGNOSTIC STUDY ORDERSOrder Description Priority Entered Acknowledged InitialedMEDICATION/IV/DRIP/FLUID ORDERSOrder Description Priority Entered Acknowledged InitialedMupirocin Topical 1 00:52 08/16/2020 00:56 saskia Bauer Physician;Vistaril PO 25 mg 01:02 08/16/2020 Cancelled: Patient Refusal 01:08 Randall Bauer; 2 OrderSheet [facility] Emergency Department [address] [place] [address] Phone #: ext- [phone] 08/16/2020 00:35 Patient: ROSSANA RIVERS I Sex: F : 2000 Age: 20yGENERAL ORDERSOrder Description Priority Entered Acknowledged Initialed[Electronically signed by Nieves Rivera R.N. (03:17 08/16/2020)][Electronically signed by Randall Christian (03:32 08/16/2020)][Electronically locked by Nieves Rivera R.N. (03:17 08/16/2020)] Name Value Range Interpretation Code Description Data Veronica rce(s) Supporting Document(s) ID Date Data Source [id number] 08/16/2020 12:35:00 AM EST [facility] 1 Medication Reconciliation Report [facility] Emergency Department [address] [place] [address] Phone #: ext- [phone] 08/16/2020 00:35 Patient: ROSSANA RIVERS I Sex: F : 2000 Age: 20yWeight: 49.8 kgHeight/Length: 61 in.BMI: 20.8ALLERGIES: PenicillinsThe patient's Home Medications are listed below:Unable to obtain.The source(s) of the original Home Medication information:Not obtained.The following Medications were given to the patient in the Emergency Department:MUPIROCIN [TOPICAL] Topical 1 application, administered: 00:56 08/16/2020The following Medications were prescribed to the patient:mupirocin 2 % topical ointment Apply a small amount three times a day for 10 days -- Dispense 22gram. Refills: 0. Substitution permitted. Note to Pharmacy - [facility]: $28.7. Adjudicatewith: BIN:[id number] PCN:TERRA Group:EMR ID:[id number]. Kulwant ne:[phone].Pharmacy - [facility] #[id number] [place] [address]. FaxNumber: [phone].doxycycline hyclate 100 mg capsule Take 1 capsule twice a day after meals for 10 days -- Dispense 20capsule. Refills: 0. Substitution permitted. Note to Pharmacy - [facility]: $28.7. Adjudicatewith: BIN:[id number] PCN:TERRA Group:EMR ID:[id number]. Phone:[phone].Pharmacy - [facility] #[id number] [place] [address]. . -- Randall Christian, Physician Name Value Range Interpretation Code Description Data Veronica rce(s) Supporting Document(s) ID Date Data Source [id number] 08/16/2020 12:35:00 AM EST [facility] 1 Medication Administration Record [facility] Emergency Department [address] [place] [address] Phone #: ext- [phone] 08/16/2020 00:35 Patient: ROSSANA RIVERS I Sex: F : 2000 Age: 20yWeight: 49.8 kgHeight/Length: 61 inBMI: 20.8ALLERGIES: Penicillins Date/Time Medication Administered Medication OrderedGiven MUPIROCIN [TOPICAL] Mupirocin Topical 1 ikhbztsepiq21:56 08/16/2020 Dose: 1 application TopicalJuancarlos, Jan, Name Value Range Interpretation Code Description Data Veronica rce(s) Supporting Document(s) ID Date Data Source [id number] 08/16/2020 12:35:00 AM EST [facility] 1 General Instructions [facility] Emergency Department [address] [place] [address] Phone #: ext- [phone] 08/16/2020 00:35 Patient: ROSSANA RIVERS I Sex: F : 2000 Age: 20yCellulitis of the chin.excoriation.INSTRUCTIONS(Take medication with food and eat yogurt daily.).Warnings: Further evaluation is necessary.GENERAL WARNINGS: Return or contact your physician immediately if your condition worsens orchanges unexpectedly, if not improving as expected, or if other problems arise.Your Current Medications: .Unable to obtain home medications.Prescription Medications:mupirocin 2 % topical ointment Apply a small amount three times a day for 10 days -- Dispense 22gram. Refills: 0. Substitution permitted. Note to Pharmacy - [facility]: $28.7. Adjudicatewith: BIN:[id number] PCN:TERRA Group:EMR ID:[id number]. [facility] ne:[phone].Pharmacy - [facility] #[id number] - [address] [place], [place] [phone]. FaxNumber: [phone].doxycycline hyclate 100 mg capsule Take 1 capsule twice a day after meals for 10 days -- Dispense 20capsule. Refills: 0. Substitution permitted. Note to Pharmacy - [facility]: $28.7. Adjudicatewith: BIN:[id number] N:[facility] Group:EMR ID:[id number]. Phone:[phone].[id number] [address] [place], [place] [phone]. .Follow-up:Follow up with your doctor Monday in two days even if well. Call for an appointment. Reason for referral:evaluation and treatment. Summary of care provided to patient via paper.Understanding of the discharge instructions verbalized by patient. ADDITIONAL INFORMATIONCellulitis 2 General Instructions [facility] Emergency Department [address] [place] [address] Phone #: ext- [phone] 08/16/2020 00:35 Patient: ROSSANA RIVERS I Sex: F : 2000 Age: 20yCellulitis is an infection of the deep layers of skin. A break in the skin, such as a cut or scratch, can letbacteria under the skin. If the bacteria get to deep layers of the skin, it can be serious. If not treated,cellulitis can get into the bloodstream and lymph nodes. The infection can then spread throughout thebody. This causes serious illness.Cellulitis causes the affected skin to become red, swollen, warm, and sore. The reddened areas havea visible border. An open sore may leak fluid (pus). You may have a fever, chills, and pain.Cellulitis is treated with antibiotics taken for 7 to 10 days. An open sore may be cleaned and coveredwith cool wet gauze. Symptoms should get better 1 to 2 days after treatment is started. Make sure totake all the antibiotics for the full number of days until they are gone. Keep taking the medicine even ifyour symptoms go away.Home careFollow these tips: Limit the use of the part of your body with cellulitis. If the infection is on your leg, keep your leg raised while sitting. This helps reduce swelling. Take all of the antibiotic medicine exactly as directed until it is gone. Don't miss any doses, especially during the first 7 days. Don't stop taking the medicine when your symptoms get better. Keep the affected area clean and dry. Wash your hands with soap and clean, running water before and after touching your skin. Anyone else who touches your skin should also wash his or her hands. Don't share towels.Follow-up careFollow up with your healthcare provider, or as advised. If your infection doesn't go away on the firstantibiotic, your healthcare provider will prescribe a different one.When to seek medical adviceCall your healthcare provider right away if any of these occur: Red areas that spread Swelling or pain that gets worse Fluid leaking from the skin (pus) Fever higher of 100.4 F (38.0 C) or higher after 2 days on antibiotics 3 General Instructions [facility] Emergency Department [address] [place] [address] Phone #: ext- [phone] 08/16/2020 00:35 Patient: ROSSANA RIVERS I Sex: F : 2000 Age: 20y [id number] [employer] [place] [address], [place] [address]. All rights reserved. This information is not intended as asubstitute for professional medical care. Always follow your healthcare professional's instructions. You have been given the following additional information: Cellulitis(Electronically signed by Randall Christian, Physician 08/16/2020 03:32) Name Value Range Interpretation Code Description Data Veronica rce(s) Supporting Document(s) ID Date Data Source [id number] 08/16/2020 12:35:00 AM EST [facility] 1 Clinical Report - Nurses [facility] Emergency Department [address] [place] [address] Phone #: ext- [phone] 08/16/2020 00:35 Patient: ROSSANA RIVERS I Sex: F : 2000 Age: 20yTRIAGEArrived by EMS, and ([place]). Historian: patient. ( Patient arrived via EMS after being reportedly foundrunning across the streets. PD wanted patient to be checked out and EMS was called. [facility] and [facility] here. Patient reports facial lesions that are "flesh eating". Patientnotably has some sores on her face. Patient also states nausea and "a whooshing in my stomach.").Acuity: LEVEL 3.Chief Complaint: SKIN LESION.Alert. No acute distress.Reported as located on the face. This started today. It is described as itchy and painful.Treatment BASS MECHANISM MAKER:None.SEPSIS SCREEN: SIRS SCREEN NEGATIVE. SEPSIS SCREEN NEGATIVE. No suspected or confirmedsigns of infection present. --00:52 08/16/20 Jan Bauer00:45 08/16/20. BP: 116/91 taken on the left arm, via an automated monitor, while sitting. MAP: 99. HR:93 (regular, normal rate and strong). RR: 18 (regular, unlabored and normal). O2 saturation: 100% on roomair. Temp: 96.8 F (oral). Pain level now: 0/10. --00:52 08/16/20 Jan Bauer.Weight: 49.8 kg stated. Height/Length: 61 inches Per Patient. BMI: 20.8. --00:51 08/16/20 Jan Bauer.MedicationsUnable to Obtain. --00:46 08/16/20 Jan Bauer.AllergiesPenicillins. --00:46 08/16/20 Jan Bauer.HistorySOCIAL HX: Current every day heavy tobacco smoker (cigarette). Occasional alcohol use. Drug use:assessment not done due to patient refuses to answer drug questions. (patient denies drug use today).She was offered HIV testing but declined and hepatitis C testing but declined. She has not traveledoutside the [place]Infectious disease exposure: No infectious disease exposure.ABUSE ASSESSMENT: Abuse assessment. Abuse denied. No report of abuse.NUTRITIONAL RISK ASSESSMENT: The nutritional risk assessment revealed no deficiencies. 2 Clinical Report - Nurses [facility] Emergency Department [address] [place] [address] Phone #: ext- [phone] 08/16/2020 00:35 Patient: ROSSANA RIVERS I Sex: F : 2000 Age: 20y FUNCTIONAL ASSESSMENT: Functional assessment: no impairments noted. LEARNING NEEDS ASSESSMENT: The learning needs assessment revealed no barriers. FALL RISK ASSESSMENT: Fall risk assessment completed. Fall interventions initiated. Patient placed on stretcher. Side rails up x2. Bed in low position. Brakes on. Patient visible from nurses' station. SKIN INTEGRITY ASSESSMENT: Skin integrity risk assessment completed. No skin integrity risk identified. --00:52 08/16/20 Jan Bauer SELF HARM ASSESSMENT: Self harm assessment was performed. The p atient answered "no" to the question(s) "Have you recently felt down, depressed, or hopeless?", "Do you have thoughts of harming or killing yourself?", "Do you have a plan for harming or killing yourself?", "Have you recently had thoughts about harming or killing others?", "Do you have any dangerous items in your possession?", "Have you noticed less interest or pleasure in doing things?", "Are you here because you tried to hurt yourself?" and "Have you ever tried to hurt yourself before today?". --00:52 08/16/20 Jan Bauer. FAMILY HX: Negative (adopted). --00:53 08/16/20 Randall Christian, Physician. Interventions Identification and allergy band on patient. To treatment room. --00:52 08/16/20 Jan Bauer.PHYSICAL ASSESSMENTTo room via stretcher. Patient gowned.GENERAL / NEURO / PSYCH: Alert. The patient does not appear to be in acute distress. Appearsanxious. Oriented X 4.HEENT: Pupils equal, round and reactive to light. ( lesions noted scattered across face in different stagesof healing. Pt reports chronic since she was 5 years old.). Mucous membranes are pink.RESPIRATORY: Respirations not labored. Breath sounds within normal limits.CVS: Capillary refill less than 2 seconds. Pulses within normal limits.GI / : Abdomen nontender.SKIN: Skin is warm and dry. ( scattered lesions and scratches generalized across body.). --00:5808/16/20 Nieves Rivera R.N.NURSING PROGRESS NOTES00:56 08/16/2020 MUPIROCIN Topical 1 application given. Allergies verified and confirmed 5 rights.Information reviewed with patient including reason for taking this medication, signs of allergic reaction andprecautions. Verbalizes understanding. (Face). --00:56 08/16/20 Jan Bauer Monitoring of patient in place. Patient gowned. Head of bed elevated. Reassurance given. Two patient identifiers checked. Call light placed in reach. Side rails up x 2. Bed placed in lowest position. Brakes of bed on. --00:57 08/16/20 Nieves Rivera R.N. 3 Clinical Report - Nurses [facility] Department [address] [place] [address] Phone #: ext- [phone] 08/16/2020 00:35 Patient: ROSSANA RIVERS I Sex: F : 2000 Age: 20yDISPOSITION / DISCHARGE ( Patient asked if she has a ride to transport her home since she will be discharged. Pt stating she has not been treated properly and would like to speak with the dr. MD Christian made aware. Pt advise that cultures will take a couple days to be processed and instructed to follow up with primary care doctor. Pt continue to insist that she needs a scan to look inside her stomach to see why she is vomiting up "black bacteria". Pt advised that the dr is discharging her to home and to follow up with her pcp. Pt insisting that she is not being evaluated and treated properly and that she will call her "business services vice president and teresa your asses". Pt educated on assessment and evaluation that she had here and she needs to follow up with her pcp. Pt on her phone trying to find someone to bring her to [facility] as she refuses to go to [facility]. Medical cab being booked to transport back back home at this time.). --01:39 08/16/20 Nieves Rivera R.N. ( Nursing operations and maintenance supervisor at bedside talking to patient at this time.). --01:49 08/16/20 Nieves Rivera R.N. ( Patient on phone with someone reading off discharge paperwork stating "if infection gets worse could go into your blood and you are at risk for serious illness, well I am trying to have you treat you but you're not". Pt informed Dr had evaluated her and she is safe to be discharged and needs to follow up with her pcp and take prescribed medication. Pt requested bill of rights and provided with a copy.). --03:04 08/16/20 Nieves Rivera R.N. 03:06 08/16/20. BP: unable to obtain. HR: unable to obtain. RR: unable to obtain. O2 saturation: unable to obtain. Temp: 97.4 F (oral). Pain level now unable to obtain. Additional comments: Patient refused d/c VS besides temperature to ensure she does not have a fever per request. MD Christian aware. --03:07 08/16/20 Nieves Rivera R.N. ( Patient called police at this time to inform them that we were unable to provide her with the medical attention she needs. Police on way.). --03:08 08/16/20 Nieves Rivera R.N. ( Medical cab arrived and patient informed that they were here to take them home. Pt stating she "will wait for the home aide to come. Pt stating you are being just like [employer], they don't treat me m edically. 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 Pt walked outside at this time.). --03:17 08/16/20 Nieves Rivera R.N.Locked/Released at 08/16/2020 03:17 by Nieves Rivera R.N. Name Value Range Interpretation Code Description Data Veronica rce(s) Supporting Document(s) ID Date Data Source [id number] 08/16/2020 12:35:00 AM [facility] 1 Clinical Report - Physicians/Mid Levels [facility] Emergency Department [address] [place] [address] Phone #: ext- [phone] 08/16/2020 00:35 Patient: ROSSANA RIVERS I Sex: F : 2000 Age: 20y Time Seen: 00:40 08/16/2020. Arrived- By ambulance. Historian- patient. Disposition decision: 01:19 08/16/2020.HISTORY OF PRESENT ILLNESS Chief Complaint: SKIN RASH and ("flesh eating bacteria"). This started on going problem and is still present. It is described as itchy. Not painful or burning. It has been located on the face, left upper extremity and left lower extremity. A possible cause has been identified (infection). No recent medication, insect bite or food exposure. Was not recently exposed to poison reny or poison oak. Similar symptoms previously. Patient has had similar symptoms many times. Recent medical care: The patient was seen recently in the emergency department. ( [facility]).REVIEW OF SYSTEMSNo fever, chills, sore throat, cough or difficulty breathing. No hoarseness, lump in throat, enlarged lymphnodes, headache or eye irritation. No chest pain, abdominal pain, diarrhea, difficulty with urination orgenital lesions. No vomiting or vaginal discharge. The patient has had nausea. All other systemsreviewed and are negative.PAST HISTORYSee nurses notes. Tetanus immunization status is up-to-date. Medications: Unable to Obtain. Allergies: Penicillins.SOCIAL HISTORYLight tobacco smoker. No alcohol use or drug use. No recent travel.FAMILY HISTORYNegative (adopted).ADDITIONAL NOTESThe nursing notes have been reviewed with agreement regarding the chief complaint, HPI, ROS, PMH andpatient medications and allergies.PHYSICAL EXAMVital Signs: 08/16/2020 00:45 BP: sitting 116/91. MAP: 99. HR: 93. RR: 18. O2 saturation: 100% on roomair. Temp: 96.8 F. Pain level now: 0/10. Have been reviewed. Hypertensive. Heart rate normal.Respiratory rate normal. Temperature normal. Oxygen saturation normal. 2 Clinical Report - Physicians/Mid Levels [facility] Emergency Department [address] [place] [address] Phone #: ext- [phone] 08/16/2020 00:35 Patient: ROSSANA RIVERS I [facility]#: [id number] Sex: F : 2000 Age: 20y Appearance: Alert. Oriented X3. Anxious. Eyes: Pupils equal, round and reactive to light. Conjunctivae and eyelids normal. ENT: Ears normal. Nose normal. Pharynx normal. Neck: Neck supple. CVS: Normal heart rate and rhythm. Heart sounds normal. Respiratory: No respiratory distress. Breath sounds normal. Chest nontender. Abdomen: Nontender. No organomegaly. Skin: Normal skin color. Skin rash present. Rash present on the right thigh (linear areas of post inflammatory coloring) and left thigh (multiple areas of post inflammatory coloring). The rash is erythematous. Rash present on the right and left forehead, right and left cheek and right and left chin (several excoriations). No abscess. Extremities: Normal external inspection. Extremities nontender. Neuro: Oriented X 3. No motor deficit. No sensory deficit.PROGRESS AND PROCEDURESCourse of Care: 00:57 Aug 16 2020. (Patient's history obtained and exam completed. Cultures of bothnares taken and of open lesion on chin/ Patient have significant evidence of healed trauma on thighs andmultiple excoriations on face. Urine HCG ,UDS and UA along with cultures. Bactroban applied to woundson face and Vistaril 25 mg given PO for itching.). 01:17 Aug 16 2020. (Patient refused hydroxyzine for itching despite benefits verses risks. Refused to provide urine for testing. Advised to return if worsen and to follow up with her primary care Monday.). Disposition: Condition: stable.CLINICAL IMPRESSION Cellulitis of the chin. excoriation.INSTRUCTIONS (Take medication with food and eat yogurt daily.). Warnings: Further evaluation is necessary. GENERAL WARNINGS: Return or contact your physician immediately if your condition worsens or changes unexpectedly, if not improving as expected, or if other problems arise. Your Current Medications: . Unable to obtain home medications. Prescription Medications: 3 Clinical Report - Physicians/Mid Levels [facility] Emergency Department [address] [place] [address] Phone #: ext- [phone] 08/16/2020 00:35 Patient: ROSSANA RIVERS I Sex: F : 2000 Age: 20y mupirocin 2 % topical ointment Apply a small amount three times a day for 10 days -- Dispense 22 gram. Refills: 0. Substitution permitted. Note to Pharmacy - [facility]: $28.7. Adjudicate with: BIN:[id number] PCN:[facility]IPPO Group:EMR ID:[id number]. Phone:[phone]. [id number] [address], [place] [phone]. . doxycycline hyclate 100 mg capsule Take 1 capsule twice a day after meals for 10 days -- Dispense 20 capsule. Refills: 0. Substitution permitted. Note to Pharmacy - Discounted [facility]: $28.7. Adjudicate with: BIN:[id number] PCN:JUANJOSEPO Group:EMR ID:[id number]. Phone:[phone]. Pharmacy - [id number] - [address], [place] [id number]. . Follow-up: Follow up with your doctor Monday in two days even if well. Call for an appointment. Reason for referral: evaluation and treatment. Summary of care provided to patient via paper. Understanding of the discharge instructions verbalized by patient.(Electronically signed by Randall Christian, Physician 08/16/2020 03:32) Name Value Range Interpretation Code Description Data Veronica rce(s) Supporting Document(s) ID Date Data Source [id number] 09/05/2020 08:07:00 AM EDT [facility] Name Value Range Interpretation Code Description Data Veronica rce(s) Supporting Document(s) CULTURE MRSA [facility] _CULTURE MRSA SCREENING_ SEE [facility]P [facility] RE[facility] ID Date Data Source [id number] 08/21/2020 04:28:00 PM EDT [facility] Name Value Range Interpretation Code Description Data Veronica rce(s) Supporting Document(s) CULTURE WOUND [facility] _CULTURE WOUND_$$[id number] DATE/TIME: 08/21/2020 11:06Culture: CULTURE WOUND Status: FinalIsolate 1 Staphylococcus aureus Flag: A . . . . . . .3Scant growthMethicillin resistant (MRSA)Based on resistance to oxacillin this isolate would be resistant toall currently available beta-lactam antimicrobial agents, with theexception of the newer cephalosporins with anti-MRSA activity, such asCeftaroline Previous result entered on 08/20/2020 14:36 ET Staphylococcus aureus Previous result entered on 08/20/2020 06:44 ET No growth after 18-24 hours.Aerobic Bacterial Culture: [id number] aureus Flag: APatient: RAFFY ROSSANA I Order: [id number] Page 2Culture: CULTURE WOUND Status: Final ====ISOLATE 1 Staphylococcus aureus Isolate 1Antibiotic LIZETH IntUnits ug/mL ----Ciprofloxacin R R . . . . . .185-9Clindamycin S S . . . . . .193-3Erythromycin R R . . . . . .233-7Gentamicin S S . . . . . .267-5Levofloxacin I I . . . . . .92338-8Hyzutqokm S S . . . . . .05557-6Oehrqzdxn R R . . . . . .383-0Penicillin R R . . . . . .6932-8Rifampin S S . . . . . .428-3Tetracycline S S . . . . . .496-0Trimethoprim/Sulfa S S . . . . . .516-5Vancomycin S S . . . . . .524-9P1 Test performed by: Edwadr ANGELA #: [id number] [address] [place] [id number] [facility] [id number] Director : Fito Valladares MD NPI #:Color Weigher : 08/20/[id number].SENT REF 08/20/20.1903.XMT.SENT REF 08/21/20.1629.XMT.SENT REF ID Date Data Source [id number] 08/06/2020 09:54:00 PM EST [facility] Name Value Range Interpretation Code Description Data Veronica rce(s) Supporting Document(s) SARS coronavirus 2 RNA [Presence] in Res piratory specimen by ANGIE with probe detection POSITIVE [facility] This lab was ordered by [facility] a nd reported by [facility]. Procedure Social History Code Duration Value Status Description Data Source(s ) Smoking 10/02/2020 12:00:00 AM EDT Light tobacco smoker comple dany Light tobacco smoker [facility] ([facility]) 08/21/2020 12:00:00 AM EDT Light cigarette smoker (1-9 cigs/day) completed Light cigarette smoker (1-9 cigs/day) [facility] ([facility]) Vital Signs ID Date Data Source UNK Name Value Range Interpretation Code Description Data Source(s) Body height 154.94 cm 154.94 cm [facility] Body weight 46.720 kg 46.720 kg [facility] ([facility]) Systolic blood pressure 108 mm[Hg] 108 mm[Hg] N [facility] ([facility]) Diastolic blood pressure 64 mm[Hg] 64 mm[Hg] [facility] ([facility] Body mass index (BMI) [Ratio] 19.46 kg/m2 19.46 kg/m2 [facility] ([facility]) Body mass index (BMI) [Percentile] Per age and gender 21 % 21 % [facility] ([facility]) Body height 154.94 cm 154.94 cm [facility] [place] [facility] Body weight 46.992 kg 46.992 kg [facility] ([facility]) Systolic blood pressure 108 mm[Hg] 108 mm[Hg] N [facility] ([facility]) Diastolic blood pressure 72 mm[Hg] 72 mm[Hg] [facility] ([facility]) Body mass index (BMI) [Ratio] 19.57 kg/m2 19.57 kg/m2 [facility] ([facility]) Body mass index (BMI) [Percentile] Per age and gender 22 % 22 % [facility] ([facility]) Patient Treatment Plan of Care Planned Activity Planned Date Details Description Data Source (s) Ceftriaxone 500 MG Injection 09/01/2020 12:00:00 AM EDT [facility] ([facility]) 168 HR Ethinyl Estradiol 0.58654 MG/HR / norelgestromin 0.93611 MG/HR Transdermal Patch [Xulane] 11/11/2019 12:00:00 AM EDT [facility] ([facility])
[2021-03-20] MEDS ORDERED: NS 1,000 ML IV ONE (22:40)
[2021-03-20 23:08] LABS: BASO % 0.4 % (0.0-1.0); EOS # 0.1 10^3/uL (0.0-0.5); EOS % 1.2 % (0.0-3.0); HEMOGLOBIN 14.3 g/dl (12.0-15.5); LYMPH # 2.4 10^3/uL (1.5-5.0); LYMPH % 35.3 % (24.0-44.0); MEAN CORPUSCULAR HEMOGLOBIN 29.1 pg (27.0-33.0); MEAN CORPUSCULAR HGB CONC 33.3 g/dl (32.0-36.5); MEAN CORPUSCULAR VOLUME 87.4 fl (80.0-96.0); MONO # 0.6 10^3/uL (0.0-0.8); MONO % 8.7 % (2.0-8.0); NEUTROPHILS # 3.7 10^3/uL (1.5-8.5); NEUTROPHILS % 54.3 % (36.0-66.0); PLATELET COUNT, AUTOMATED 349 10^3/uL (150-450); RED BLOOD COUNT 4.92 10^6/uL (4.00-5.40); WHITE BLOOD COUNT 6.8 10^3/uL (4.0-10.0)
[2021-03-20 23:43] LABS: ABG BASE EXCESS 0.7 (-2.0-2.0); ABG HCO3 25.6 MEQ/L (22.0-26.0); ABG O2 SATURATION 98.5 % (95.0-99.0); ABG PARTIAL PRESSURE O2 132.7 mmHg (75.0-100.0); ABG STANDARD HCO3 25.1 MEQ/L (22.0-26.0); ABG TOTAL CO2 26.9 MEQ/L (22.0-29.0); ABG pH (ARTERIAL) 7.403 UNITS (7.350-7.450)
[2021-03-20 23:47] LABS: ACETAMINOPHEN LEVEL < 2.0 UG/ML (10.0-30.0); ALBUMIN 3.5 GM/DL (3.2-5.2); ALT/SGPT 37 U/L (12-78); BILIRUBIN,DIRECT 0.1 MG/DL (0.0-0.2); BILIRUBIN,TOTAL 0.3 MG/DL (0.2-1.0); BLOOD UREA NITROGEN 9 MG/DL (7-18); CALCIUM LEVEL 8.7 MG/DL (8.5-10.1); CARBON DIOXIDE LEVEL 28 MEQ/L (21-32); CHLORIDE LEVEL 106 MEQ/L (98-107); CPK CREATINE PHOSPHOKINASE 286 U/L (26-192); CREATININE FOR GFR 0.66 MG/DL (0.55-1.30); ETHYL ALCOHOL (ETHANOL) < 0.003 % (0.000-0.010); GLUCOSE, FASTING 76 MG/DL (70-100); SALICYLATE LEVEL < 1.7 MG/DL (5.0-30.0); SODIUM LEVEL 140 MEQ/L (136-145); TOTAL PROTEIN 7.1 GM/DL (6.4-8.2)
[2021-03-20 23:49] LABS: HCG, SERUM QUALITATIVE NEGATIVE (NEGATIVE)
[2021-03-20 23:54] LABS: AMPHETAMINES LEVEL URINE POSITIVE (NEGATIVE); BARBITURATES URINE NEGATIVE (NEGATIVE); BENZODIAZEPINES URINE NEGATIVE (NEGATIVE); CANNABINOIDS URINE POSITIVE (NEGATIVE); COCAINE METABOLITE URINE POSITIVE (NEGATIVE); METHADONE URINE NEGATIVE (NEGATIVE); OPIATES URINE NEGATIVE (NEGATIVE); PHENCYCLIDINE URINE NEGATIVE (NEGATIVE)
[2021-03-21 09:16] VITALS: BP 119/94
--- NOTE | 2021-03-21 19:38 | ECGEPIP ---
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
== END 2021-03-21 09:49 | disposition home or self-care (01) ==
LOC: M ED 22:35
DX: F19.10 Other psychoactive substance abuse, uncomplicated (principal); Z88.0 Allergy status to penicillin

== ENCOUNTER 2021-04-13 00:43 | Emergency (ER) | payer SELFPAY ==
[~2021-04-13] VITALS: Ht 160 cm; Wt 53.2 kg
[2021-04-13 00:43] VITALS: BP 125/58
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
== END 2021-04-13 04:28 | disposition left against medical advice (07) ==
LOC: M ED 00:43
DX: Z53.21 Procedure and treatment not carried out due to patient leaving prior to being seen by health care provider (principal)

== ENCOUNTER 2021-04-13 05:51 | Emergency (ER) | payer SELFPAY ==
[~2021-04-13] VITALS: Ht 160 cm; Wt 53.2 kg
[2021-04-13 05:51] VITALS: BP 119/69
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
== END 2021-04-13 06:25 | disposition left against medical advice (07) ==
LOC: M ED 05:51
DX: Z53.21 Procedure and treatment not carried out due to patient leaving prior to being seen by health care provider (principal)

== ENCOUNTER 2021-04-13 08:09 | Emergency (ER) | payer SELFPAY ==
--- OUTSIDE RECORDS SUMMARY | 2021-04-13 08:27 | CCD ---
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 04:28:00 PM EDT [facility] Name Value Range Interpretation Code Description Data Veronica rce(s) Supporting Document(s) CULTURE WOUND [facility] _CULTURE WOUND_$$[id number] DATE/TIME: 08/21/2020 11:06Culture: CULTURE WOUND Status: FinalIsolate [...] No growth after 18-24 hours.Aerobic Bacterial Culture: [id number] aureus Flag: APatient: TITA TRACY I Order: [id number] Page 2Culture: CULTURE WOUND Status: Final ====ISOLATE 1 Staphylococcus aureus Isolate 1Antibiotic LIZETH IntUnits ug/mL ----Ciprofloxacin R R . . . . . .185-9Clindamycin S S . . . . . .193-3Erythromycin R R . . . . . .233-7Gentamicin S S . . . . . .267-5Levofloxacin I I . . . . . .10310-1Yrfwlygln S S . . . . . .46922-5Atsljzmad R R . . . . . .383-0Penicillin R R . . . . . .6932-8Rifampin S S . . . . . .428-3Tetracycline S S . . . . . .496-0Trimethoprim/Sulfa S S . . . . . .516-5Vancomycin S S . . . . . .524-9P1 Test performed by: Edward Hughes PETAR #: [id number] [address] [place] [id number] [facility] [id number] Director : Fito Valladares MD NPI #:Cell Inspector : 08/20/[email or web address].SENT REF 08/20/20.1903.XMT.SENT REF 08/21/20.1629.XMT.SENT REF ID Date Data Source [id number] 08/06/2020 09:54:00 PM EST [facility] Name Value Range Interpretation Code Description Data Veronica rce(s) Supporting Document(s) SARS coronavirus 2 RNA [Presence] in Res piratory specimen by ANGIE with probe detection POSITIVE [facility] This lab was ordered by [facility] a nd reported by [facility]. Procedure Social History Code Duration Value Status Description Data Source(s ) Smoking 10/02/2020 12:00:00 AM EDT Light tobacco smoker comple dany Light tobacco smoker [facility] ([facility]) 08/21/2020 12:00:00 AM EDT Light cigarette smoker (1-9 cigs/day) completed Light cigarette smoker (1-9 cigs/day) [facility] ([facility]) Vital Signs ID Date Data Source UNK Name Value Range Interpretation Code Description Data Source(s) Body height 154.94 cm 154.94 cm [facility] Body weight 46.720 kg 46.720 kg [facility] ([facility]) Systolic blood pressure 108 mm[Hg] 108 mm[Hg] N [facility] ([facility]) Diastolic blood pressure 64 mm[Hg] 64 mm[Hg] [facility] ([facility]) Body mass index (BMI) [Ratio] 19.46 kg/m2 19.46 kg/m2 [facility] ([facility]) Body mass index (BMI) [Percentile] Per age and gender 21 % 21 % [facility] ([facility]) Body height 154.94 cm 154.94 cm [facility]) Body weight 46.992 kg 46.992 kg [facility] ([facility]) Systolic blood pressure 108 mm[Hg] 108 mm[Hg] N [facility] ([facility]) Diastolic blood pressure 72 mm[Hg] 72 mm[Hg] [facility]) Body mass index (BMI) [Ratio] 19.57 kg/m2 19.57 kg/m2 [facility] ([facility]) Body mass index (BMI) [Percentile] Per age and gender 22 % 22 % [facility] ([facility]) Patient Treatment Plan of Care Planned Activity Planned Date Details Description Data Source (s) Ceftriaxone 500 MG Injection 09/01/2020 12:00:00 AM EDT [facility] ([facility]) 168 HR Ethinyl Estradiol 0.97886 MG/HR / norelgestromin 0.79152 MG/HR Transdermal Patch [Kishan] 11/11/2019 12:00:00 AM EDT [facility] ([facility])
== END 2021-04-13 08:24 | disposition left against medical advice (07) ==
LOC: M ED 08:09 → EDBD 08:09 → M ED 08:24
DX: Z53.21 Procedure and treatment not carried out due to patient leaving prior to being seen by health care provider (principal)